=== PATIENT | female | born 1945 | race Caucasian/White ===

== ENCOUNTER 2018-07-12 00:32 | Emergency (ER) | payer MEDICARE, BC ==
--- OUTSIDE RECORDS SUMMARY | 2018-07-12 00:34 | XMS REPORT | Clinical Summary ---
:1945 Author Organization [facility] Address [address] [place] [address] Care Team Providers Name Role Phone Alton Herrera Primary Care Provider Allergies No Known Allergies Medications Not on file Active Problems Not on file Social History Tobacco Use Types Packs/Day Years Used Date Never Smoker Alcohol Use Drinks/Week oz/Week Comments No Sex Assigned at Date Recorded Not on file Job Start Date Occupation Industry Not on file Not on file Not on file Travel History Travel Start Travel End No recent travel history available. Last Filed Vital Signs Not on file Plan of Treatment Not on file Results Not on fileafter 07/11/2017 Insurance Payer Benefit Plan / Group Subscriber ID Type Phone Address MEDICARE MEDICARE A B xxxxxxxxxx Medicare UNITED HEALTHCARE - [place] ONLY HMO POS SELECT xxxxxxxxx HMO/POS CARE CHOICE
--- OUTSIDE RECORDS SUMMARY | 2018-07-12 00:34 | XMS REPORT | Clinical Summary ---
:1945 Author Organization [facility] Address [address] [place] [id number] Care Team Providers Name Role Phone Vera Cronin Primary Care Provider Allergies No Known Allergies Medications No known medications Active Problems Problem Noted Date Hip pain 09/27/2015 Social History Tobacco Use Types Packs/Day Years Used Date Never Smoker Sex Assigned at Date Recorded Not on file Job Start Date Occupation Industry Not on file Not on file Not on file Travel History Travel Start Travel End No recent travel history available. Last Filed Vital Signs Not on file Plan of Treatment Health Maintenance Due Date Last Done Comments BREAST CANCER SCREENING 1996 COLON CANCER SCREENING 1996 SHINGLES VACCINES (#1) 1996 65+ PNEUMOCOCCAL VACCINE (1 of 2 - PCV13) 2011 PNEUMOCOCCAL POLYSACCHARIDE VACCINE AGE 65 AND OVER 2011 INFLUENZA VACCINE 10/07/2018 Implants Implanted Type Area Air Quality Technician Device Shelf Model / Identifier Expiration Serial / Date Lot 54mm, Vivian Acetabular Shell, Taper Size 3 Hip Acetabular Right: [facility] 06/03/2020 [id number] / Implanted: Qty: 1 on 09/27/2015 by Zion Forman MD Components Hip / [id number] 36 Mm Neutral Offset Taper Size 3, Liner, Ecima Hip Implant Right: [facility] 08/13/2020 [id number] / Implanted: Qty: 1 on 09/27/2015 by Zion Forman MD System Hip / [id number] Mini Hip Stem Size 6,Standard Neck, Hip Implant Right: [facility] 2020 [id number] / Implanted: Qty: 1 on 09/27/2015 by Zion Forman MD System Hip / [id number] 36mm Extra Short -8.0 Mm 02/19 Eurocone Taper Vivian Modular Head Hip Implant Right: [employer] [place] 04/09/2020 [id number] / Implanted: Qty: 1 on 09/27/2015 by Zion Forman MD System Hip / [id number] Results Not on fileafter 07/11/2017 Insurance Payer Benefit Plan / Group Subscriber ID Type Phone Address MEDICARE MEDICARE PART B xxxxxxxxxx Medicare [place], [place] UHC [employer]ALTH[employer] xxxxxxxxx HMO Advance Directives Patient has advance care planning documents on file. For more information, please contact:Vernon Carballo[address] [place] [address]
--- OUTSIDE RECORDS SUMMARY | 2018-07-12 00:36 | XMS REPORT | Continuity of Care Document ---
:1945 Author Organization Interface Problems Problem Status Onset Classification Date Comments Source Date Reported M16.12 - Active 01/23/20 OPID UNILATERAL [address] [place] [address] PRIMARY [facility] OSTEOARTHRI PAIN IN LEFT Active 01/16/20 [facility] HIP, UNILATERAL 16 [facility] PRIMARY OST I82.409 - ACUTE Active 10/08/19 The EMBOLISM AND [address] [place] THOMBOS UNS Hepatitis Resolved 03/09/19 Problem 02/23/2016 Treated [facility] C<sup>2</sup> 02 [facility] Carditis Resolved 03/09/18 Problem 02/23/[address] TB (<span Resolved 03/09/18 Problem 02/23/2016 Treated [facility] ID="[id number] [facility] 3">Confirmed</s tamayo>)<sup>1</mace p> Murmur, heart Active Problem 02/23/2016 [facility] Hearing Resolved Problem 02/23/2016 [facility] impairment [facility] Hypertension Active Problem 02/23/2016 [facility] ACUTE EMBOLISM Active The AND [facility] [place] [place] UNSP DEEP VN PRESENCE OF Active The RIGHT [place] ARTIFICIAL HIP JOINT ILLNESS, Active [facility] UNSPECIFIED [facility] Medications Medication Details Route Status Patient Ordering Order Source Instructions Provider Date Mupirocin 1 appl, NASAL, Active Q12H, in each 2015 [facility] nostril, 0 City Refill(s) Acetaminophen 325 10/325mg, PO, Active MG / Hydrocodone Q4H, PRN as 2015 [facility] Bitartrate 10 MG needed for [facility] Oral Tablet pain, # 50 tab, [Seibert 10/325] 0 Refill(s) gabapentin 300 MG 300 mg=1 cap, Active Oral Capsule PO, Bedtime, 2015 [facility] For nerve pain [facility] May cause dorwisness, # 30 cap, 0 Refill(s) celecoxib 200 MG 200 mg=1 cap, Active Oral Capsule PO, BID, Take 2015 [facility] [Celebrex] with food [facility] Prevent bone spur, # 60 cap, 0 Refill(s) Aspirin 325 MG 325 mg=1 tab, Active Enteric Coated PO, BID, Take 2015 [facility] Tablet with food For [facility] blood clot prevention, # 60 tab, 0 Refill(s) bromfenac 0.9 1 drp, Route: No Longer MG/ML Ophthalmic OPTH, Drug Active 2015 [facility] Solution Form: SOLN, Natty [] Dosing Weight 78.182, kg, BID, Start date: 02/19/16 9:00:00 RISK ASSESSMENT ANALYST, Duration: 30 day, Stop date: 03/19/16 17:00:00 RISK ASSESSMENT ANALYST Paroxetine 20 mg, 1 tab, No Longer Route: PO, Drug Active 2015 [facility] form: TAB, QAM, [facility] Dosing Weight 78.182, kg, Start date: 02/19/16 9:00:00 RISK ASSESSMENT ANALYST, Duration: 30 day, Stop date: 03/19/16 9:00:00 CSTNotes: (Same as: Paxil) Enoxaparin 40 mg, 0.4 mL, No Longer Route: SUB-Q, Active 2015 [facility] Drug form: INJ, [facility] Daily, Dosing Weight 78.182, kg, Start date: 02/19/16 5:00:00 RISK ASSESSMENT ANALYST, Duration: 30 day, Stop date: 03/19/16 5:00:00 CSTNotes: (Same as: Lovenox) Vancomycin 6.67 1,000 mg, Inactive MG/ML Injectable Route: IVPB, 2015 [facility] Solution Q12H, Dosing City Weight 78.182, kg, Time Critical Medication, Start date: 02/19/16 3:00:00 RISK ASSESSMENT ANALYST, Duration: 2 doses or times, Stop date: 02/19/16 15:00:00 RISK ASSESSMENT ANALYST, Pharmacy to adjust dose for renal functionNotes: TIME CRITICAL MEDICATION (Same As: Vancocin) Infusion rate 2001 mg: infuse over 2.5 hours MEDICATION WASTE Product Size: 1000 mg Product Wasted: ___ mg gabapentin 300 mg, 1 cap, No Longer Route: PO, Drug Active 2015 [facility] form: CAP, Natty Q8H-06, Dosing Weight 78.182, kg, Start date: 02/18/16 22:00:00 RISK ASSESSMENT ANALYST, Duration: 30 day, Stop date: 03/19/16 14:00:00 CSTNotes: (Same as: Neurontin) acetaminophen 500 mg, 1 tab, No Longer Route: PO, Drug Active 2015 [facility] form: TAB, Q6H, [facility] Start date: 02/18/16 21:00:00 RISK ASSESSMENT ANALYST, Duration: 30 day, Stop date: 03/19/16 15:00:00 CSTNotes: Max acetaminophen 4000 mg/day (4 gm/day). (Same as: Tylenol Extra Strength) celecoxib 200 mg, 1 cap, No Longer Route: PO, Drug Active 2015 [facility] form: CAP, [facility] [id number], Dosing Weight 78.182, kg, Start date: 02/18/16 21:00:00 RISK ASSESSMENT ANALYST, Duration: 30 day, Stop date: 03/19/16 9:00:00 CSTNotes: NSAID. Please check indication. Not for seizure. (Same As: CeleBREX) Saline Flush 0.9% 10 ml, Route: Inactive IVP, Drug Form: 2015 [facility] INJ, Dosing [facility] Weight 78.182, kg, Q12H, Start date: 02/18/16 21:00:00 RISK ASSESSMENT ANALYST, Duration: 30 day, Stop date: 03/19/16 9:00:00 RISK ASSESSMENT ANALYST Mupirocin 1 appl, Route: No Longer NASAL, Q12H, Active 2015 [facility] Drug form: City OINT, Start date: 02/18/16 21:00:00 RISK ASSESSMENT ANALYST, Duration: 30 day, Stop date: 03/19/16 9:00:00 RISK ASSESSMENT ANALYST ceFAZolin (SCIP) 2 gm, 100 mL, No Longer Route: IVPB, Active 2015 [facility] Drug form: INJ, City Q6H, Dosing Weight 78.182, kg, Start date: 02/18/16 20:00:00 RISK ASSESSMENT ANALYST, Duration: 3 doses or times, Stop date: 02/19/16 8:00:00 CSTNotes: Same as: Ancef Docusate 100 mg, 1 cap, No Longer Route: PO, Drug Active [address] [place] [address] form: CAP, BID, [facility] Dosing Weight 78.182, kg, Start date: 02/18/16 17:00:00 RISK ASSESSMENT ANALYST, Duration: 30 day, Stop date: 03/19/16 9:00:00 CSTNotes: (Same as: Colace) (Do Not Crush) phenylephrine Route: IV, Drug Inactive (ANES) form: INJ, 2015 [facility] , Stop City date: 02/18/16 16:49:00 RISK ASSESSMENT ANALYST Acetaminophen 1,000 mg, Inactive Route: IVPB, 2015 [facility] Q6Hnow, Dosing City Weight 78.182, kg, Start date: 02/18/16 16:00:00 RISK ASSESSMENT ANALYST, Duration: 30 day, Stop date: 03/19/16 10:00:00 RISK ASSESSMENT ANALYST BD Normal Saline 5 mL, Route: No Longer Flush IV, Drug Form: Active 2015 [facility] INJ, PRN, PRN [facility] Line Flush, Start date: 02/18/16 15:31:00 RISK ASSESSMENT ANALYST, Duration: 30 day, Stop date: 03/19/16 15:30:00 CSTNotes: (Same as: BD Posiflush) Sodium Chloride 25 mL, Route: No Longer 0.9% IV IV, Start date: Active 2015 [facility] 02/18/16 [facility] 15:31:00 RISK ASSESSMENT ANALYST, Duration: 30 day, Stop date: 03/19/16 15:30:00 RISK ASSESSMENT ANALYST, PRN Line Flush famotidine (ANES) Route: IV, Drug Inactive form: INJ, 2015 [facility] , Stop City date: 02/18/16 15:18:00 RISK ASSESSMENT ANALYST metoclopramide Route: IV, Drug Inactive (ANES) form: INJ, 2015 [facility] , Stop City date: 02/18/16 15:18:00 RISK ASSESSMENT ANALYST ondansetron Route: IV, Drug Inactive (ANES) form: INJ, 2015 [facility] , Stop City date: 02/18/16 15:18:00 RISK ASSESSMENT ANALYST dexamethasone Route: IV, Drug Inactive (ANES) form: INJ, 2015 [facility] , Stop City date: 02/18/16 15:18:00 RISK ASSESSMENT ANALYST Morphine 2 mg, 1 mL, No Longer Route: IVP, Active 2015 [facility] Drug form: INJ, [facility] Q4H, Dosing Weight 78.182, kg, PRN Pain Score 6-10, Start date: 02/18/16 15:16:00 RISK ASSESSMENT ANALYST, Duration: 30 day, Stop date: 03/19/16 15:15:00 CSTNotes: (Same as:MORPhine Sulfate) Diphenhydramine 25 mg, 1 cap, No Longer Route: PO, Drug Active 2015 [facility] form: CAP, City Bedtime, Dosing Weight 78.182, kg, PRN Insomnia, Start date: 02/18/16 15:16:00 RISK ASSESSMENT ANALYST, Duration: 30 day, Stop date: 03/19/16 15:15:00 CSTNotes: (Same as: Benadryl) Ondansetron 4 mg, 2 mL, No Longer Route: IVP, Active 2015 [facility] Drug form: INJ, City Q8H, Dosing Weight 78.182, kg, PRN Nausea & Vomiting, Start date: 02/18/16 15:16:00 RISK ASSESSMENT ANALYST, Duration: 30 day, Stop date: 03/19/16 15:15:00 CSTNotes: (Same as: Ann) MEDICATION WASTE Product Size: 4 mg Product Wasted: ___ mg Bisacodyl 10 mg, 1 supp, No Longer Route: OR, Drug Active 2015 [facility] form: SUPP, City Daily, Dosing Weight 78.182, kg, PRN Constipation, Start date: 02/18/16 15:16:00 RISK ASSESSMENT ANALYST, Duration: 30 day, Stop date: 03/19/16 15:15:00 CSTNotes: (Same As: Dulcolax, Bisco-Lax) Tramadol 100 mg, 2 tab, No Longer Route: PO, Drug Active 2015 [facility] form: TAB, City Q6Hnow, Dosing Weight 78.182, kg, PRN Pain Score 1-3, Start date: 02/18/16 15:16:00 RISK ASSESSMENT ANALYST, Duration: 30 day, Stop date: 03/19/16 15:15:00 CSTNotes: Not to exceed 400mg/day. (Same As: Ultram) Saline Flush 0.9% 10 ml, Route: Inactive IVP, Drug Form: 2015 [facility] INJ, Dosing City Weight 78.182, kg, PRN, PRN Line Flush, Start date: 02/18/16 15:16:00 RISK ASSESSMENT ANALYST, Duration: 30 day, Stop date: 03/19/16 15:15:00 RISK ASSESSMENT ANALYST Acetaminophen 325 2 tab, Route: No Longer MG / Hydrocodone PO, Drug Form: Active 2015 [facility] Bitartrate 10 MG TAB, Dosing City Oral Tablet Weight 78.182, kg, Q4H, PRN Pain Score 6-10, Start date: 02/18/16 15:16:00 RISK ASSESSMENT ANALYST, Duration: 30 day, Stop date: 03/19/16 15:15:00 CSTNotes: Do not exceed 4gm/day of acetaminophen. (Same as: Seibert 325/10) Lactated Ringers 1,000 mL, Rate: No Longer 1,000 mL 125 ml/hr, Active 2015 [facility] Infuse over: 8 City hr, Route: IV, Dosing Weight 78.182 kg, Total Volume: 1,000, Start date: 02/18/16 15:16:00 RISK ASSESSMENT ANALYST, Duration: 30 day, Stop date: 03/19/16 15:15:00 RISK ASSESSMENT ANALYST phenylephrine Route: IV, Drug Inactive MH (ANES) (ANES) form: INJ, 2015 [facility] Start date: [facility] 02/18/16 15:15:00 RISK ASSESSMENT ANALYST, Stop date: 02/18/16 16:15:00 RISK ASSESSMENT ANALYST morphine Sulfate Route: IV, Drug Inactive MH (ANES) form: JOSE JUAN 2015 [facility] , date: 02/18/16 15:12:00 RISK ASSESSMENT ANALYST fentaNYL (ANES) Route: IV, Drug Inactive form: INJ 2015 [facility] , date: 02/18/16 15:12:00 RISK ASSESSMENT ANALYST midazolam (ANES) Route: IV, Drug Inactive form: SOLN 2015 [facility] , date: 02/18/16 15:12:00 RISK ASSESSMENT ANALYST lidocaine (ANES) Route: IV, Drug Inactive 02/17/ MH form: INJ, 2015 [facility] , date: 02/18/16 15:12:00 RISK ASSESSMENT ANALYST ePHEDrine (ANES) Route: IV, Drug Inactive 02/17/ MH form: INJ, 2015 [facility] , City date: 02/18/16 15:07:00 RISK ASSESSMENT ANALYST propofol (ANES) Route: IV, Drug Inactive 12/12/ MH form: INJ, 2015 [facility] ONCE, Stop City date: 02/18/16 15:07:00 RISK ASSESSMENT ANALYST bupivacaine Route: IV, Drug Inactive 02/17/ MH (ANES) Form: INJ, 2015 [facility] , Stop City date: 02/18/16 14:52:00 RISK ASSESSMENT ANALYST morphine Sulfate Route: Inactive MH (ANES) INTRATHECAL, 2015 [facility] Drug form: [facility] SOLN, ONCE, Stop date: 02/18/16 14:52:00 RISK ASSESSMENT ANALYST acetaminophen Route: IV, Drug Inactive MH (ANES) (ANES) form: INJ, 2015 [facility] Start date: [facility] 02/18/16 14:37:00 RISK ASSESSMENT ANALYST, Stop date: 02/18/16 15:37:00 RISK ASSESSMENT ANALYST tranexamic acid Route: IV, Drug Inactive 02/17/ MH (ANES) (ANES) form: INJ, 2015 [facility] Start date: [facility] 02/18/16 14:34:00 RISK ASSESSMENT ANALYST, Stop date: 02/18/16 15:34:00 RISK ASSESSMENT ANALYST propofol (ANES) Route: IV, Drug Inactive MH (ANES) form: INJ, 2015 [facility] Start date: [facility] 02/18/16 14:20:00 RISK ASSESSMENT ANALYST, Stop date: 02/18/16 15:20:00 RISK ASSESSMENT ANALYST LR 1000 mL INJ Route: IV, Inactive MH (ANES) Total Volume: 2015 [facility] 1,000, Start City date: 02/18/16 14:11:00 RISK ASSESSMENT ANALYST, Stop date: 02/18/16 15:11:00 RISK ASSESSMENT ANALYST vancomycin (ANES) Route: IV, Drug Inactive MH (ANES) form: INJ, 2015 [facility] Start date: [facility] 02/18/16 14:11:00 RISK ASSESSMENT ANALYST, Stop date: 02/18/16 15:11:00 RISK ASSESSMENT ANALYST ceFAZolin (ANES) Route: IV, Drug Inactive 02/17/ MH (ANES) form: INJ, 2015 [facility] Start date: [facility] 02/18/16 14:11:00 RISK ASSESSMENT ANALYST, Stop date: 02/18/16 15:11:00 RISK ASSESSMENT ANALYST ceFAZolin 2 gm, 100 mL, Inactive MH Route: IVPB, 2015 [facility] Drug form: INJ, [facility] ONCALL, Start date: 02/18/16 0:00:00 RISK ASSESSMENT ANALYST, Duration: 20 hr, Stop date: 02/18/16 19:59:00 CSTNotes: Same as: Ancef vancomycin + 1,250 mg, Inactive sodium chloride Route: IVPB, 2015 [facility] 0.9% 250 [facility] date: 02/18/16 mL 0:00:00 RISK ASSESSMENT ANALYST, Duration: 20 hr, Stop date: 02/18/16 19:59:00 CSTNotes: TIME CRITICAL MEDICATION (Same As: Vancocin) Infusion rate 2001 mg: infuse over 2.5 hours MEDICATION WASTE Product Size: 1000 mg Product Wasted: ___ mg Cyklokapron + 1,000 mg, 10 No Longer sodium chloride mL, Route: Active 2015 [facility] 0.9% INJ [facility] Start date: 02/18/16 0:00:00 RISK ASSESSMENT ANALYST, Duration: 2 doses or timesNotes: (Same As: Cyklokapron) dexamethasone 4 mg, 1 mL, Inactive Route: IVP, 2015 [facility] Drug form: INJ [facility] Start date: 02/18/16 0:00:00 RISK ASSESSMENT ANALYST, Duration: 20 hr, Stop date: 02/18/16 19:59:00 CSTNotes: Concentration: 4mg/ml Ofirmev 1,000 mg, 100 No Longer mL, Route: IV, Active 2015 [facility] Drug form: INJNatty, Start date: 02/18/16 0:00:00 RISK ASSESSMENT ANALYST, Duration: 20 hr, Stop date: 02/18/16 19:59:00 CSTNotes: Infuse over 15 minutes Do not exceed 4gm/day of acetaminophen MEDICATION WASTE Product Size: 1000 mg Product Wasted: ___ mg Lyrica 75 mg, 1 cap, Inactive Route: PO, Drug 2015 [facility] form: CAP, Natty WOODWADR, Start date: 02/18/16 0:00:00 RISK ASSESSMENT ANALYST, Duration: 20 hr, Stop date: 02/18/16 19:59:00 CSTNotes: (Same as: Lyrica) CeleBREX 400 mg, 2 cap, Inactive Route: PO, Drug 2015 [facility] form: CAP, [facility] TRACE, Start date: 02/18/16 0:00:00 RISK ASSESSMENT ANALYST, Duration: 20 hr, Stop date: 02/18/16 19:59:00 CSTNotes: NSAID. Please check indication. Not for seizure. (Same As: CeleBREX) Zofran 4 mg, 2 mL, Inactive Route: IVP, 2015 [facility] Drug form: INJ, Natty ONCALL, Start date: 02/18/16 0:00:00 RISK ASSESSMENT ANALYST, Duration: 20 hr, Stop date: 02/18/16 19:59:00 CSTNotes: (Same as: Zofran) MEDICATION WASTE Product Size: 4 mg Product Wasted: ___ mg Pepcid 20 mg, 1 tab, Inactive Route: PO, Drug 2015 [facility] form: TAB, Natty ONCALL, Start date: 02/18/16 0:00:00 RISK ASSESSMENT ANALYST, Duration: 20 hr, Stop date: 02/18/16 19:59:00 CSTNotes: (Same as: Pepcid) multivitamin 1 tab, PO, Active 02/03/ MH Daily, 0 2015 [facility] Refill(s) [facility] difluprednate 0.5 1 drp, BOTH Active 02/03/ MH MG/ML Ophthalmic EYES, QID, 2015 [facility] Suspension After 14 days, [facility] [Durezol] taper dose as directed by physician., # 5 mL, 0 Refill(s) bromfenac 0.9 1 drp, OPTH, Active 02/03/ MH MG/ML Ophthalmic BID, # 5 ml, 0 2015 [facility] Solution Refill(s) [facility] carvedilol 6.25 6.25 mg=1 tab, Active 02/03/ MH mg oral tablet PO, BID, 0 2015 [facility] Refill(s) [facility] PARoxetine 20 mg=1 tab, Active 02/03/ MH mesylate 20 mg PO, QAM, 0 2015 [facility] oral tablet Refill(s) [facility] Allergies, Adverse Reactions, Alerts Substance Category Reaction Severity Reaction Status Date Comments Source type Reported Immunizations Immunization Date Given Site Status Last Updated Comments Source Results Order Name Results Value Reference Date Interpretation Comments Source Range HEMATOLOGY Eosinophils 2.0 % 0.0 - 4.0 02/19 [facility] HEMATOLOGY Monocytes 10.8 % 2.0 - 12.0 02/19 [facility] HEMATOLOGY Segs 61.4 % 45.0 - 12/ MH 75.0 /2016 [facility] HEMATOLOGY Lymphocytes 24.8 % 20.0 - 12/ MH 40.0 /2015 [facility] HEMATOLOGY Monocytes # 0.7 K/CMM 0.0 - 0.8 12/ MH /2015 [facility] HEMATOLOGY Lymphocytes 1.6 K/CMM 1.0 - 5.5 12/14 MH # /2016 [facility] HEMATOLOGY Segs-Bands # 4.0 K/CMM 1.5 - 8.1 02/19 /2015 [facility] HEMATOLOGY Basophils 1.0 % 0.0 - 1.0 12/ MH /2015 [facility] HEMATOLOGY Basophils # 0.1 K/CMM 0.0 - 0.2 / /2015 [facility] HEMATOLOGY Eosinophils 0.1 K/CMM 0.0 - 0.5 /14 MH # /2016 [facility] HEMATOLOGY Hct 25.9 % 36.0 - 02/19 MH 48.0 /2015 [facility] HEMATOLOGY MCV 84.9 fL 80.0 - 02/19 98.0 /2015 [facility] HEMATOLOGY MCH 28.2 pg 27.0 - 02/19 MH 31.0 [facility] HEMATOLOGY MCHC 33.2 g/dL 32.0 - 02/19 MH 36.0 /2015 [facility] HEMATOLOGY RDW 14.9 % 11.5 - 02/19 14.5 [facility] HEMATOLOGY Platelet 158 K/CMM 133 - 450 / /2015 [facility] MPV 9.2 fL 7.4 - 10.4 02/19 [facility] HEMATOLOGY WBC 6.6 K/CMM 3.7 - 10.4 02/19 [facility] HEMATOLOGY RBC 3.05 M/CMM 4.20 - 02/19 MH 5.40 /2015 [facility] HEMATOLOGY Hgb 8.6 g/dL 12.0 - 02/19 MH 16.0 [facility] CHEM PANEL eGFR 71 02/18 Result Comment: The eGFR is calculated using the CKD-EPI formula. In most young, healthy individuals the eGFR will be >90 mL/ min/1.73m2. The eGFR declines with age. An eGFR of 60-89 may be normal in MH mL/min/1. some populations, particularly the elderly, for whom the CKD-EPI formula has not been extensively validated. Use of the eGFR is not recommended in the following populations: [address] Individuals with unstable creatinine concentrations, including patients and those with serious co-morbid conditions. Patients with extremes in muscle mass or diet. The data above are obtained from the National Kidney Disease Education Program (NKDEP) which additionally recommends that when the eGFR is used in patients with extremes of body mass index for purposes of drug dosing, the eGFR should be multiplied by the estimated BMI. CHEM PANEL AST 25 unit/L 0 - 37 02/18 [facility] CHEM PANEL ALT 21 unit/L 0 - 65 02/18 [facility] CHEM PANEL Creatinine 0.84 mg/dL 0.50 - 12 MH Lvl 1.40 /2015 [facility] CHEM PANEL Glucose Lvl 164 mg/dL 70 - 99 02/18 [facility] CHEM PANEL CO2 23 meq/L 24 - 32 02/18 [facility] CHEM PANEL BUN 14 mg/dL 7 - 22 02/18 [facility] CHEM PANEL Total 5.9 g/dL 6.4 - 8.4 02/18 [facility] CHEM PANEL Albumin Lvl 3.0 g/dL 3.5 - 5.0 02/18 [facility] CHEM PANEL Alk Phos 130 unit/L 39 - 136 02/18 [facility] CHEM PANEL Bili Total null 0.2 - 1.3 02/18 [facility] CHEM PANEL Calcium Lvl 8.5 mg/dL 8.5 - 10.5 02/18 [facility] CHEM PANEL Chloride Lvl 108 meq/L 95 - 109 02/18 [facility] CHEM PANEL Potassium 4.2 meq/L 3.5 - 5.1 02/18 MH Lvl [facility] CHEM PANEL Sodium Lvl 142 meq/L 135 - 145 02/18 [facility] CHEM PANEL A/G Ratio 1.0 0.7 - 1.6 02/18 [facility] CHEM PANEL B/C Ratio 17 6 - 25 02/18 [facility] CHEM PANEL Globulin 2.9 g/dL 2.7 - 4.2 02/18 [facility] CHEM PANEL AGAP 15.2 meq/L 10.0 - 12 MH 20.0 [facility] HEMATOLOGY INR 1.05 0.85 - 02/18 MH 1.17 [facility] HEMATOLOGY PT 13.9 s 12.0 - 02/18 MH 14.7 /2015 [facility] HEMATOLOGY PTT 29.7 s 22.9 - 02/18 MH 35.8 /2015 [facility] HEMATOLOGY Platelet 195 K/CMM 133 - 450 02/18 MH /2015 [facility] MCH 28.1 pg 27.0 - 02/18 MH 31.0 /2015 [facility] HEMATOLOGY MCHC 33.2 g/dL 32.0 - 02/18 MH 36.0 /2015 [facility] HEMATOLOGY MPV 8.9 fL 7.4 - 10.4 12 MH /2015 [facility] HEMATOLOGY RDW 14.9 % 11.5 - 02/18 MH 14.5 /2015 [facility] HEMATOLOGY WBC 11.1 K/CMM 3.7 - 10.4 02/18 /2015 [facility] HEMATOLOGY MCV 84.7 fL 80.0 - 02/18 98.0 /2015 [facility] Hct 30.5 % 36.0 - 02/18 MH 48.0 /2015 [facility] HEMATOLOGY Hgb 10.1 g/dL 12.0 - 02/18 16.0 /2015 [facility] HEMATOLOGY RBC 3.60 M/CMM 4.20 - 02/18 MH 5.40 /2015 [facility] HEMATOLOGY Lymphocytes 5.5 % 20.0 - 02/18 MH 40.0 /2015 [facility] HEMATOLOGY Segs-Bands # 9.6 K/CMM 1.5 - 8.1 02/18 /2015 [facility] HEMATOLOGY Basophils 0.1 % 0.0 - 1.0 02/18 /2015 [facility] HEMATOLOGY Monocytes 7.2 % 2.0 - 12.0 02/18 /2015 [facility] HEMATOLOGY Monocytes # 0.8 K/CMM 0.0 - 0.8 02/18 /2015 [facility] HEMATOLOGY Lymphocytes 0.6 K/CMM 1.0 - 5.5 02/18 MH # /2015 [facility] HEMATOLOGY Segs 87.2 % 45.0 - 02/18 MH 75.0 [facility] BLOOD BANK Antibody Negative 02/17 RESULTS Scrn [facility] (02/18/16 12:30 PM) [facility] BLOOD BANK ABO/Rh O POS 02/17 RESULTS /2015 [facility] Pelvis AP Pelvis AP DX Clinical Information : left mini total hip replacement -intra op. 02/17 - DX - [facility] : 1945 [facility] Sex: Female. Read by: Regan Smith MD Dictated Date/time: 02/18/16 17:26 Electronically Signed by: Regan Smith MD 02/18/16 17:27 FINAL REPORT Technique: AP post operative view of the left hip. Findings: Normally articulated left hip arthroplasty. Soft tissue surgical defects. Surgical drain. Right hip arthroplasty indwelling. Impression: Normal post op left hip arthroplasty. Pelvis AP Pelvis AP DX Clinical Information : Arthritis. 02/17 - DX /2015 - [facility] : 1945 [facility] Sex: Female. Read by: Regan Smith MD Dictated Date/time: 02/18/16 17:25 Electronically Signed by: Regan Smith MD 02/18/16 17:25 FINAL REPORT Technique: AP intra-operative view of the left hip. Findings: Intraoperative view of left hip arthroplasty in progress. Femoral sizing stem. Normally articulated right hip arthroplasty. BACTERIAL MRSA by PCR Negative 02/03 - SEROLOGY /2015 [facility] (02/04/16 10:00 AM) [facility] CHEM PANEL Glucose Lvl 91 mg/dL 70 - 99 02/03 [facility] ELECTROLYT Sodium Lvl 144 meq/L 135 - 145 02/03 ES [facility] ELECTROLYT Potassium 4.1 meq/L 3.5 - 5.1 02/03 ES Lvl [facility] HEMATOLOGY Hct 37.8 % 36.0 - 02/03 48.0 [facility] HEMATOLOGY Hgb 12.3 g/dL 12.0 - 02/03 16.0 [facility] IMMUNOLOGY Hep C Ab Positive 02/03 [facility] *ABN* [facility] (02/04/16 10:00 AM) Ext Lower Ext Lower Exam: Right lower extremity Doppler venous ultrasound. 10/21 OPID Venous Venous /2015 - [facility] Doppler Doppler [facility] Unilat US Unilat US Reason for Exam: DVT Read by: Neftali Farias MD Dictated Date/time: 10/22/15 14:37 Electronically Signed by: Neftali Farias MD 10/22/15 14:39 FINAL REPORT Comparison Exam: 10/08/2015 Discussion: Real-time grayscale, color Doppler imaging, and spectral waveform analysis was performed of the right lower extremity deep venous system. There are no filling defects or lack of compressibility seen wit hin the deep venous system to suggest DVT. The waveforms are within normal limits and respond appropriately to augmentation. Note that the popliteal vein appears prominent in size, measuring up to 1.5 cm. in diameter. Impression: 1. Negative right lower extremity Doppler venous ultrasound for DVT. Note that the popliteal vein appears prominent in size, measuring up to 1.5 cm. in diameter. Ext Lower Ext Lower Clinical Indication: Leg swelling and leg pain, rule out DVT. 10/07 - The Venous Venous /2015 [facility] Doppler Doppler Comparison: None Unilat US Unilat US Read by: Milton Islas MD Dictated Date/time: 10/08/15 13:06 TECHNIQUE: Electronically Signed by: Milton Islas MD 10/08/15 13:10 FINAL REPORT Real-time grayscale, color Doppler, and spectral Doppler ultrasound imaging of the right leg veins. FINDINGS: The common femoral vein, superficial femoral vein, popliteal vein and visualized posterior tibial/calf veins are patent with normal compression and augmentation. There is no echogenic debris to suggest deep venous thrombosis. The saphenofemoral junction is unremarkable. IMPRESSION: 1. No deep venous thrombosis of the right lower extremity. REFERENCE: Deep veins include: common femoral vein, superficial femoral vein (also can be referred to as "femoral vein"), popliteal vein, posterior tibial vein Superficial veins include: greater and lesser saphenous veins SL: [id number] Vital Signs Vital Sign Value Date Comments Source Respitory Rate 16 02/20/2016 [facility] Heart Rate 65 02/20/2016 [facility] Systolic (mm Hg) 131 02/20/2016 [facility] Diastolic (mm Hg) 65 02/20/2016 [facility] Temperature Oral (F) 98.1 F 02/20/2016 [facility] Systolic (mm Hg) 125 02/20/2016 [facility] Diastolic (mm Hg) 64 02/20/2016 [facility] Temperature Oral (F) 98.2 F 02/20/2016 [facility] Heart Rate 63 02/20/2016 [facility] Respitory Rate 16 02/20/2016 [facility] Systolic (mm Hg) 148 02/20/2016 [facility] Diastolic (mm Hg) 69 02/20/2016 [facility] Respitory Rate 18 02/20/2016 [facility] Temperature Oral (F) 97.6 F 02/20/2016 [facility] Heart Rate 62 02/20/2016 [facility] BMI Calculated 27.82 02/04/2016 [facility] Height 167.64 cm 02/04/2016 [facility] Weight 78.182 02/04/2016 [facility] Encounters Location Location Encounter Encounter Reason Attending ADM DC Status Source Details Type Number For Provider Date Date Visit [id number] 10[facility]07 [facility]2015 [facility] Outpt Diag [id number] 10/21 [facility] Inpatient [id number] 02/17 [facility] Procedures Procedure Code Date Perfomer Comments Source Cataract surgery [id number] [address] Hip replacement [id number] [address] Bunionectomy [id number] [address] Open heart [id number] window for [facility]<sup>1</sup constrictive City > paracarditis Procedure on nasal [id number] [facility]
[2018-07-12 01:47] LABS: Absolute Lymphocytes (CBC) 1.6 K/uL (0.7-4.9); Absolute Monocytes 0.7 K/uL (0.1-1.3); Absolute Neutrophil 3.8 K/uL (1.8-8.0); Basophils % 0.8 % (0-1.3); Eosinophils % 2.7 % (0-4.4); Hematocrit 38.8 % (36.0-45.0); Lymphocytes % 25.3 % (15.3-44.8); MPV 8.8 fL (7.6-11.3); Monocytes % 11.4 % (3.3-12.3)
[2018-07-12 02:05] LABS: BUN Blood Urea Nitrogen 28 mg/dL (7-18); Bicarbonate 28 mmol/L (21-32); Glucose Level 99 mg/dL (74-106); Magnesium 2.3 mg/dL (1.8-2.4); Potassium 3.5 mmol/L (3.5-5.1); Sodium Level 142 mmol/L (136-145); Troponin (Emerg Dept Use Only) < 0.02 ng/mL (0.0-0.045)
[2018-07-12] MEDS ORDERED: NA CHLORIDE 0.9% 500 ML ONE (02:29)
--- NOTE | 2018-07-12 04:21 | ER ---
Nurse's Notes [facility] Name: Mary Romero Age: 73 yrs Sex: Female : 1945 Arrival Date: 07/12/2018 Time: 00:36 Bed 14 Private MD: Atlon Herrera V Diagnosis: Dehydration;Dizziness and giddiness Presentation: 07/12 00:51 Presenting complaint: Patient states: she has been feeling dizzy the last week then bb noticed tonight she had an irregular pulse then this evening she also noticed she had a knot on her neck. Transition of care: patient was not received from another setting of care. Onset of symptoms was July 12, 2018. Risk Assessment: Do you want to hurt yourself or someone else? Patient reports no desire to harm self or others. Initial Sepsis Screen: Does the patient meet any 2 criteria? No. Patient's initial sepsis screen is negative. Does the patient have a suspected source of infection? No. Patient's initial sepsis screen is negative. Care prior to arrival: None. 00:51 Method Of Arrival: Ambulatory bb 00:51 Acuity: LORA 3 bb Historical: - Allergies: 00:57 No Known Allergies; bb - Home Meds: 00:56 amlodipine 2.5 mg tab 1 tab twice a day [Active]; aspirin 81 mg Oral chew 1 tab once bb daily [Active]; pravastatin 20 mg oral tab 1 tab once daily [Active]; D3 2000 IU daily [Active]; biotin oral oral [Active]; - PMHx: 00:56 Hyperlipidemia; Hypertension; bb - PSHx: 00:56 heart surgery in 1979; rhinoplasty; bunionectomy; bb 00:57 bilateral hip replacement; bb - Immunization history:: Adult Immunizations. - Social history:: Smoking status: Patient/guardian denies using tobacco. - Ebola Screening: : No symptoms or risks identified at this time. - Family history:: not pertinent. - Hospitalizations: : No recent hospitalization is reported. Screenin:28 Abuse screen: Denies threats or abuse. Nutritional screening: No deficits noted. ea Tuberculosis screening: No symptoms or risk factors identified. Fall Risk IV access (20 points). Assessment: 02:28 General: Appears in no apparent distress. Behavior is calm, cooperative, appropriate ea for age. Pain: Denies pain. Neuro: Level of Consciousness is awake, alert, obeys commands, Oriented to person, place, time, situation. Cardiovascular: Patient's skin is warm and dry. Respiratory: Airway is patent Respiratory effort is even, unlabored, Respiratory pattern is regular, symmetrical. GI: No signs and/or symptoms were reported involving the gastrointestinal system. Derm: Skin is pink, warm \T\ dry. 03:45 Reassessment: Patient and/or family updated on plan of care and expected duration. Pain ea level reassessed. Patient is alert, oriented x 3, equal unlabored respirations, skin warm/dry/pink. Awaiting on CT results. 04:49 Reassessment: Patient and/or family updated on plan of care and expected duration. Pain ea level reassessed. Patient is alert, oriented x 3, equal unlabored respirations, skin warm/dry/pink. Discharge instruction given to patient, verbalized the understanding of instruction. No s/s of pain or discomfort noted at this time. Pt left ED ambulatory, tolerating well. Vital Signs: 00:57 BP 128 / 73; Pulse 66; Resp 16 S; Temp 98.4(O); Pulse Ox 95% on R/A; Weight 84.82 kg bb (R); Height 5 ft. 6 in. (167.64 cm); Pain 2/10; 02:15 BP 128 / 61 Supine; Pulse 59; lt1 02:15 BP 129 / 65 Sitting; Pulse 64; lt1 02:15 BP 135 / 63 Standing; Pulse 71; lt1 04:03 BP 139 / 64; Pulse 63; Resp 13 S; Pulse Ox 96% on R/A; cc3 00:57 Body Mass Index 30.18 (84.82 kg, 167.64 cm) bb 00:57 pt has a headache bb ED Course: 00:36 Patient arrived in ED. es 00:37 Alton Herrera MD is Private Physician. es 00:52 Triage completed. bb 00:55 Delfino Holt MD is Attending Physician. rn 00:57 Arm band placed on Patient placed in an exam room, on a stretcher, on pulse oximetry. bb 01:29 X-ray completed. Portable x-ray completed in exam room. Patient tolerated procedure kw well. 01:35 Anu Little, LEONIDES is Primary Nurse. ea 01:38 Initial lab(s) drawn, by ia, sent to lab. Inserted saline lock: 20 gauge in right lt1 antecubital area, using aseptic technique. 01:43 CT completed. Patient tolerated procedure well. Patient moved to CT via wheelchair. ga Patient moved back from CT. 02:28 Patient has correct armband on for positive identification. Bed in low position. Call ea light in reach. Side rails up X2. 03:09 CT completed. Patient tolerated procedure well. Patient moved to CT. Patient moved back ga from CT. 04:20 Luis E Hernandez MD is Referral Physician. rn 04:45 IV discontinued, intact, bleeding controlled, No redness/swelling at site. Pressure ea dressing applied. 04:50 No provider procedures requiring assistance completed. ea 06:42 CT Head Brain wo Cont In Process Unspecified. EDMS 06:42 XRAY Chest (1 view) In Process Unspecified. EDMS 06:45 CT Head Angio In Process Unspecified. EDMS 06:[address] In Process Unspecified. EDMS Administered Medications: 02:27 Drug: NS 0.9% 500 ml Route: IV; Rate: bolus; Site: right antecubital; ea 03:50 Follow up: Response: No adverse reaction; IV Status: Completed infusion ea 04:51 Follow up: IV Status: Completed infusion; IV Intake: 500ml ea Intake: 04:51 IV: 500ml; Total: 500ml. ea Outcome: 04:20 Discharge ordered by MD. rn 04:51 Discharged to home ambulatory. ea 04:51 Condition: improved 04:51 Discharge instructions given to patient, Instructed on discharge instructions, follow up and referral plans. Demonstrated understanding of instructions, follow-up care. 04:51 Patient left the ED. ea Signatures: Dispatcher [employer] EDMS Michelle Martinez Brenda, RN RN bb Nieto, Roman, MD MD rn Whitley, Kimberlee kw Jordan, Nathan nj Antunez, Elena, RN RN ea Cordel, Charlene 3 Jocelynn Wylie lt1
--- NOTE | 2018-07-12 04:21 | EDPHYS ---
Physician Documentation [facility] Name: Mary Romero Age: 73 yrs Sex: Female : 1945 Arrival Date: 07/12/2018 Time: 00:36 Bed 14 Private MD: Alton Herrera V ED Physician Delfino Holt HPI: 07/12 01:17 This 73 yrs old Female presents to ER via Ambulatory with complaints of High rn Blood Pressure, Knot on neck. 01:17 The patient presents with dizziness, feeling off balance. Onset: The symptoms/episode rn began/occurred 1 week(s) ago. Context: occurred. Modifying factors: The symptoms are alleviated by lying down, the symptoms are aggravated by standing up, changing position. Severity of symptoms: At their worst the symptoms were mild in the emergency department the symptoms have improved. The patient has not experienced similar symptoms in the past. Reports 1 week of dizziness, feels off balance, comes and goes, no syncope, assoc with palpitations just tonight, but denies chest pain/sob/vomiting/diarrhea/abd pain. No focal neurological complaint. Ambulatory, cutting grass, and doing everything else ok. Also noticed knot just above sternal notch, no weight loss, blood in stool, or history of cancer. . Historical: - Allergies: 00:57 No Known Allergies; bb - Home Meds: 00:56 amlodipine 2.5 mg tab 1 tab twice a day [Active]; aspirin 81 mg Oral chew 1 tab once bb daily [Active]; pravastatin 20 mg oral tab 1 tab once daily [Active]; D3 2000 IU daily [Active]; biotin oral oral [Active]; - PMHx: 00:56 Hyperlipidemia; Hypertension; bb - PSHx: 00:56 heart surgery in 1979; rhinoplasty; bunionectomy; bb 00:57 bilateral hip replacement; bb - Immunization history:: Adult Immunizations. - Social history:: Smoking status: Patient/guardian denies using tobacco. - Ebola Screening: : No symptoms or risks identified at this time. - Family history:: not pertinent. - Hospitalizations: : No recent hospitalization is reported. ROS: 01:17 Constitutional: Negative for fever, chills, and weight loss, Eyes: Negative for injury, rn pain, redness, and discharge, Neck: Negative for injury, pain, and swelling, Cardiovascular: Negative for chest pain, and edema, Respiratory: Negative for shortness of breath, cough, wheezing, and pleuritic chest pain, Abdomen/GI: Negative for abdominal pain, nausea, vomiting, diarrhea, and constipation, MS/Extremity: Negative for injury and deformity, Skin: Negative for injury, rash, and discoloration, Neuro: Negative for headache, weakness, numbness, tingling, and seizure. Exam: 01:17 Constitutional: This is a well developed, well nourished patient who is awake, alert, rn and in no acute distress. Ambulatory to room. Head/Face: Normocephalic, atraumatic. Eyes: Pupils equal round and reactive to light, extra-ocular motions intact. Lids and lashes normal. Conjunctiva and sclera are non-icteric and not injected. Cornea within normal limits. Periorbital areas with no swelling, redness, or edema. ENT: MMM Cardiovascular: Regular rate and rhythm with a normal S1 and S2. No gallops, murmurs, or rubs. No pulse deficits. Respiratory: Lungs have equal breath sounds bilaterally, clear to auscultation. No increased work of breathing, no retractions or nasal flaring. Abdomen/GI: Soft, non-tender MS/ Extremity: Pulses equal, no cyanosis. Neurovascular intact. Full, normal range of motion. Equal circumference. Neuro: Awake and alert, GCS 15, oriented to person, place, time, and situation. Cranial nerves II-XII grossly intact. Motor strength 5/5 in all extremities. Sensory grossly intact. Cerebellar exam normal. Normal gait. Vital Signs: 00:57 BP 128 / 73; Pulse 66; Resp 16 S; Temp 98.4(O); Pulse Ox 95% on R/A; Weight 84.82 kg bb (R); Height 5 ft. 6 in. (167.64 cm); Pain 2/10; 02:15 BP 128 / 61 Supine; Pulse 59; lt1 02:15 BP 129 / 65 Sitting; Pulse 64; lt1 02:15 BP 135 / 63 Standing; Pulse 71; lt1 04:03 BP 139 / 64; Pulse 63; Resp 13 S; Pulse Ox 96% on R/A; cc3 00:57 Body Mass Index 30.18 (84.82 kg, 167.64 cm) bb 00:57 pt has a headache bb MDM: 00:55 Patient medically screened. rn 04:19 Differential diagnosis: idiopathic dizziness, vertigo. Data reviewed: vital signs, rn nurses notes, lab test result(s), EKG, radiologic studies, CT scan, and as a result, I will discharge patient. Counseling: I had a detailed discussion with the patient and/or guardian regarding: the historical points, exam findings, and any diagnostic results supporting the discharge/admit diagnosis, lab results, radiology results, the need for outpatient follow up, to return to the emergency department if symptoms worsen or persist or if there are any questions or concerns that arise at home. Special discussion: I discussed with the patient/guardian in detail that at this point there is no indication for admission to the hospital. It is understood, however, that if the symptoms persist or worsen the patient needs to return immediately for re-evaluation. Based on the history and exam findings, there is no indication for further emergent testing or inpatient evaluation. I discussed with the patient/guardian the need to see the neurologist for further evaluation of the symptoms. 04:19 ED course: Neg CTA head and neck. rn 07/12 01:17 Order name: Basic Metabolic Panel rn 07/12 01:17 Order name: CBC with Diff rn 07/12 01:17 Order name: Magnesium rn 07/12 01:17 Order name: Troponin (emerg Dept Use Only) rn 07/12 01:48 Order name: CBC with Automated Diff; Complete Time: 02:07 EDMS 07/12 02:05 Order name: Basic Metabolic Panel; Complete Time: 02:07 EDMS 07/12 01:17 Order name: CT Head Brain wo Cont rn 07/12 01:17 Order name: XRAY Chest (1 view) rn 07/12 02:05 Order name: Troponin (Emerg Dept Use Only); Complete Time: 02:07 EDMS 07/12 02:05 Order name: Magnesium; Complete Time: 02:07 EDMS 07/12 02:08 Order name: CT Head Angio rn 07/12 02:08 Order name: Neck Angio CT rn 07/12 04:26 Order name: Urine Dipstick--Ancillary (enter results) mw2 07/12 01:17 Order name: EKG; Complete Time: 01:17 rn 07/12 01:17 Order name: Cardiac monitoring; Complete Time: 02:16 rn 07/12 01:17 Order name: EKG - Nurse/Tech; Complete Time: 02:16 rn 07/12 01:17 Order name: IV Saline Lock; Complete Time: 01:39 rn 07/12 01:17 Order name: Labs collected and sent; Complete Time: 01:39 rn 07/12 01:17 Order name: O2 Per Protocol; Complete Time: 02:43 rn 07/12 01:17 Order name: O2 Sat Monitoring; Complete Time: 02:43 rn 07/12 01:17 Order name: Urine Dipstick-Ancillary (obtain specimen); Complete Time: 04:26 rn 07/12 01:17 Order name: Orthostatics; Complete Time: 02:16 rn Administered Medications: 02:27 Drug: NS 0.9% 500 ml Route: IV; Rate: bolus; Site: right antecubital; ea 03:50 Follow up: Response: No adverse reaction; IV Status: Completed infusion ea 04:51 Follow up: IV Status: Completed infusion; IV Intake: 500ml ea Disposition: 07/12/18 04:20 Discharged to Home. Impression: Dehydration, Dizziness and giddiness. - Condition is Stable. - Discharge Instructions: Dehydration, Adult, Dizziness. - Medication Reconciliation Form, Thank You Letter, Antibiotic Education, Prescription Opioid Use form. - Follow up: Luis E Hernandez; When: As needed; Reason: Recheck today's complaints, Re-evaluation by your physician. - Problem is an ongoing problem. - Symptoms have improved. Signatures: Dispatcher [employer] EDMS Teena Amezquita RN RN bb Nieto, Roman, MD MD rn Antunez, Elena, RN RN ea Corrections: (The following items were deleted from the chart) 04:51 04:20 07/12/2018 04:20 Discharged to Home. Impression: Dehydration; Dizziness and ea giddiness. Condition is Stable. Discharge Instructions: Dehydration, Adult, Dizziness. Forms are Medication Reconciliation Form, Thank You Letter, Antibiotic Education, Prescription Opioid Use. Follow up: Luis E Hernandez; When: As needed; Reason: Recheck today's complaints, Re-evaluation by your physician. Problem is an ongoing problem. Symptoms have improved. rn
[2018-07-12 05:34] LABS: Urine Blood NEGATIVE (NEG); Urine Glucose NEGATIVE (NEG); Urine Protein NEGATIVE (NEG); Urine Specific Gravity 1.015 (1.005-1.030); Urine pH 7.5 (5.0-7.0)
--- NOTE | 2018-07-12 08:23 | RAD REPORT ---
EXAM DESCRIPTION: RAD - Chest Single View - 07/12/2018 1:31 am CLINICAL HISTORY: PALPITATIONS Chest pain. COMPARISON: Chest Pa And Lat (2 Views) dated 01/23/2016; Chest Pa And Lat (2 Views) dated 07/12/2015; CHEST PA AND LAT 2 VIEW dated 04/19/2007 FINDINGS: Portable technique limits examination quality. Small calcified nodule in the right lung base is noted, likely benign. The lungs are emphysematous bu t clear of acute infiltrate. The heart is mildly enlarged with sternotomy wires present. No displaced fractures. IMPRESSION: No acute intrathoracic process suspected.
--- NOTE | 2018-07-12 08:45 | EKG ---
Test Date: 2018-07-12 Test Time: 01:57:36 Physical Anthropologist: RAJENDRAT MEASUREMENT RESULTS: Intervals: Rate: 57 MD: 186 QRSD: 84 QT: 442 QTc: 430 [place]: P: 62 MD: 186 QRS: 20 T: 58 INTERPRETIVE STATEMENTS: Sinus bradycardia Possible Anterior infarct, age undetermined Abnormal ECG No previous ECG available for comparison Electronically Signed On 07-12-18 08:44:29 CDT by Flakito Gastelum
--- NOTE | 2018-07-12 10:42 | RAD REPORT ---
EXAM DESCRIPTION: Head Brain Wo Cont CLINICAL HISTORY: DIZZINESS COMPARISON: None. TECHNIQUE: CT HEAD WITHOUT IV CONTRAST on 07/12/2018 1:17 AM CDT This exam was performed according to our departmental dose-optimization program, which includes autom ated exposure control, adjustment of the mA and/or kV according to patient size and/or use of iterati ve reconstruction technique. FINDINGS: There is no acute hemorrhage, mass effect or midline shift. Burton-white differentiation is preserved. There is no hydrocephalus. There is no significant volume loss for age. There are mild pat blayne hypodensities within the periventricular and subcortical white matter, consistent with microangio pathic ischemic changes. The calvarium is intact. Orbits and globes are unremarkable. The paranasal sinuses are clear. Mastoid air cells are clear. IMPRESSION: No acute intracranial findings. Electronically signed by: Pacheco Harp MD 07/12/2018 2:07 AM CDT Due to temporary technical issues with the PACS/Fluency reporting system, reports are being signed by the in house radiologist as a courtesy to ensure prompt reporting. The interpreting radiologist is f ully responsible for the content of the report.
--- NOTE | 2018-07-12 10:45 | RAD REPORT ---
EXAM DESCRIPTION: Head angio CLINICAL HISTORY: DIZZINESS COMPARISON: None. TECHNIQUE: CT HEAD ANGIOGRAPHY WITH IV CONTRAST on 07/12/2018 2:08 AM CDT This exam was performed according to our departmental dose-optimization program, which includes autom ated exposure control, adjustment of the mA and/or kV according to patient size and/or use of iterati ve reconstruction technique. MIP reconstructions were generated. Stenoses are calculated by NASCET criteria. FINDINGS: The vertebral basilar system is unremarkable. The bilateral posterior cerebral arteries ar e patent. The anterior and middle cerebral arteries are unremarkable. Distal internal carotid arterie s are normal. Anterior communicating artery is patent. IMPRESSION: Unremarkable intracranial circulation. Electronically signed by: Pacheco Harp MD 07/12/2018 3:36 AM CDT Due to temporary technical issues with the PACS/Fluency reporting system, reports are being signed by the in house radiologist as a courtesy to ensure prompt reporting. The interpreting radiologist is f ully responsible for the content of the report.
--- NOTE | 2018-07-12 10:46 | RAD REPORT ---
EXAM DESCRIPTION: Neck Angio CLINICAL HISTORY: Dizziness COMPARISON: None. TECHNIQUE: CT NECK ANGIOGRAPHY WITH IV CONTRAST on 07/12/2018 2:08 AM CDT This exam was performed according to our departmental dose-optimization program, which includes autom ated exposure control, adjustment of the mA and/or kV according to patient size and/or use of iterati ve reconstruction technique. MIP reconstructions were generated. Stenoses are calculated by NASCET criteria. FINDINGS: Extracranial vertebral arteries are patent. Common carotid arteries and internal carotid a rteries are diffusely patent. IMPRESSION: No evidence of stenosis or vessel occlusion. Electronically signed by: Pacheco Harp MD 07/12/2018 3:39 AM CDT Due to temporary technical issues with the PACS/Fluency reporting system, reports are being signed by the in house radiologist as a courtesy to ensure prompt reporting. The interpreting radiologist is f ully responsible for the content of the report.
== END 2018-07-12 04:51 | disposition home or self-care (01) ==
LOC: ER 00:32
DX: R42 Dizziness and giddiness (principal); E86.0 Dehydration; E78.5 Hyperlipidemia, unspecified; I10 Essential (primary) hypertension; Z79.82 Long term (current) use of aspirin
CPT/HCPCS: 93005; 85025; 80048; 36415; 83735; 81003; 84484; 70450; 70496; 70498; 71045; 96360; 99284; Q9967

== ENCOUNTER 2022-01-11 11:46 | Observation (INO) | payer MEDICARE, BC ==
--- OUTSIDE RECORDS SUMMARY | 2022-01-11 11:50 | XMS REPORT | Continuity of Care Document ---
:1945 Author Organization [facility] t Address [address] [place] [address] Care Team Providers Name Role Phone Alton Ballard Primary Care Physician DOUG ADAM Attending Clinician Unavailable Doug Adam MD Attending Clinician Doctor Unassigned, Tavares Attending Clinician Unavailable Pob, Ad[facility] Lab Main Attending Clinician Unavailable Amie Carter MD Attending Clinician Zion Forman Attending Clinician DOUG ADAM Admitting Clinician Unavailable Doug Adam MD Admitting Clinician Zion Forman Admitting Clinician Payers Payer Name Policy Type Policy Number Effective Date Expiration Date S ource ER/OBS/IP MEDICARE [id number] 2011 PART B ONLY 00:00:00 BC[employer] TRADITIONAL [id number] 2016 00:00:00 Problems Condition Condition Condition Status Onset Resolution Last Treating Co mments Source Name Details Category Date Date Treatment Clinician Date Bradycardi Bradycardi Disease Active Last B aylor a a 9-13 [employer] 00:00: t & Plan: of 00 Holter as Medicin above, e off carvedilo lReport new/worse edith symptoms M16.12 - M16.12 - Diagnosis Active 2015-032016-03-06 Memoria UNILATERAL UNILATERAL 03-24 16:14:00 l PRIMARY PRIMARY 00:01: [place] OSTEOARTHR OSTEOARTHR 00 I I Active 01/23/[address] [facility] Glucose Glucose Disease Active 2015-03 Last Manohar intoleranc intoleranc 03-19 [employer] e e 00:00: t & Plan: of (impaired (impaired 00 HbA1C Medi dee dee glucose glucose ordered e tolerance) tolerance) todayImpr ove dietDieti nestor referralF ollow up with primary MD Dyslipidem Dyslipidem Disease Active 2015-03 Last Lisa vuaghan ia ia 03-19 [employer] 00:00: t & Plan: of 00 Fasting Medicin lipids e ordered todayDiet and exercise could be improved PAIN IN PAIN IN Diagnosis Active 2015-032016-05-08 Memoria LEFT HIP, LEFT HIP, 03-17 09:38:00 l UNILATERAL UNILATERAL 00:00: He rmann PRIMARY PRIMARY 00 OST OST Active 01/16/2016 [facility] I82.409 - I82.409 - Diagnosis Active 2015-10-[address] [facility] ACUTE ACUTE 10-07 12:52:00 l EMBOLISM EMBOLISM 00:01: Arie n AND AND 00 THOMBOS THOMBOS UNS UNS Active 6 [facility] Hip pain Hip pain Disease Active Metho di 09-26 st 00:00: Hospita 00 l Hypertensi Hypertensi Disease Active Scotty vaughan on on 09-02 [employer] 00:00: t & Plan: of 00 Inconsist Medicin ent BP e elevation taken at inconsist ent time of day, exacerbat ed by anxiety.B P within normal limits in office todayInst ructed to report only resting AM and PM BP in one weekExten ded time (25 min) spent reviewing HTN guideline s, treatment goals, benefits of preventat wander diet, exercise, increased hydration , significa nce and indicatio n for CV screening tests, addressin g patient's questions /concerns .Monitor dizziness (? Losartan? ) with increased hydration Goal to simplify medicatio ns, switch to one medicatio n only pending review of BP log Systolic Systolic Disease Active Scotty Pierce r murmur murmur 09-02 [employer] 00:00: t & Plan: of 00 Stable, Medicin benign e Preoperati Preoperati Disease Active Last B [facility] oscar moore 09-02 [facility] clearance clearance 00:00: t & Plan: o f 00 Pending Medicin BP e results, if better controlle d on carvedilo l 6.25 BID which should be continued pre and post operative ly.Follow up visit two months after surgery. Constricti Constricti Disease Active Last B [facility] pericardit pericardit t & Plan: of is is No Medicin hemodynam e ic evidence of constrict ion by echoStabl e Heart Heart Problem Active 2016-02-23 Memor ia murmur murmur 01:27:28 l (finding) (finding) Keith melgar Active Problem 02/23/2016 [facility] ACUTE ACUTE Diagnosis Active 2015-10-08 Mem oria EMBOLISM EMBOLISM 12:52:00 l AND AND Anton [facility] UNSP DEEP UNSP DEEP VN VN Active [facility] PRESENCE PRESENCE Diagnosis Active 2015-10-08 Memoria OF RIGHT OF RIGHT 12:52:00 l ARTIFICIAL ARTIFICIAL He rmann HIP JOINT HIP JOINT Active [facility] ILLNESS, ILLNESS, Diagnosis Active 2016-05-08 Memoria UNSPECIFIE UNSPECIFIE 09:38:00 l D D Active Anton [facility] Hearing Hearing Problem Resolve 2016-02-23 Memoria loss loss d 01:27:28 l (finding) (finding) Keith melgar Resolved Problem 02/23/2016 [facility] Viral Viral Problem Resolve 2001-2016-02-23 2016-02-23 Memoria hepatitis hepatitis d 03-09 01:27:28 01:27:28 l C C 00:00: Anton (disorder) (disorder) 00 Resolved 03/09/2001 Problem 02/23/2016 Treated [facility] Carditis Carditis Problem Resolve 1979-2016-02-23 2016-02-23 Memoria (disorder) (disorder) d 03-09 01:27:28 01:27:28 l Resolved 00:00: Anton 03/09/1979 00 Problem 02/23/2016 [facility] Tuberculos Tuberculo Problem Resolve 1968-0 2016-02-23 2016-02-23 Memoria is sis d 03-09 01:27:28 01:27:28 l (disorder) (disorder) 00:00: He rmann Resolved 00 03/09/1968 Problem 02/23/2016 Treated [facility] Allergies, Adverse Reactions, Alerts Allergy Allergy Status Severity Reaction(s) Onset Inactive Treating Comm ents Source Name Type Date Date Clinician Carrie Hastings Active intoleran Concho veronica ol ty to 03-14 [facility] adverse 00:00: of reaction 00 Medicin s to e drug Losartan Propensi Active intoleren Concho veronica ty to 03-14 [facility] adverse 00:00: of reaction 00 Medicin s to e drug NO KNOWN Drug Active Univers ALLERGIE Class ity of S [facility] Social History Social Habit Start Date Stop Date Quantity Comments Source Exposure to 2021-06-22 2021-07-02 Not sure [facility] SARS-CoV-2 00:00:00 10:45:00 [place] [facility] (event) Branch Tobacco use and 2021-05-09 2021-05-09 Never used Universit y of exposure 00:00:00 00:00:00 [facility] Social History 2016-02-04 2016-02-04 [facility] 15:37:58 15:37:58 Alcohol intake 2015-11-02 2015-11-[address] [facility] 00:00:00 00:00:00 non-drinker of Medical nter alcohol (finding) Alcohol Comment 2015-09-03 2015-09-03 rare glass of [facility] of 00:00:00 00:00:00 wine Medicine Sex Ass[birth year] [facility] 00:00:00 00:00:00 Smoking Status Start Date Stop Date Source Never smoker [facility] Medical Branch Medications Ordered Filled Start Stop Current Ordering Indication Dosage Frequency Signature Comments Components Source Medication Medication Date Date Medication? Clinician (SIG) Name Name neomycin-po Yes PRN, Univer s lymyxin-dex 07-04 Starting ity of amethasone 15:10: on [place] (MAXITROL) 00 07/04/21 at Med ical 3.5 1010, Branch mg/g-10,000 Until unit/g-0.1 Discontinu % ed, ophthalmic Routine, ointment Intra-op gentamicin Yes PRN, Univers injection 07-04 Starting ity of 15:10: on [place] 00 07/04/21 at Medical 1010, Branch Until Discontinu ed, HUNTER, Intra-op DUOVISC Yes PRN, Univers (DUOVISC 07-04 Starting ity of VISCO 15:10: on [place] ELASTIC) 3 00 07/04/21 at Med ical %-4 %(0.5 1010, Branch mL) 1 % Until (0.55 mL) Discontinu intraocular ed, injection Routine, Intra-op dexamethaso Yes PRN, Univer s ne 07-04 Starting ity of (DECADRON 15:10: on [place] PHOSPHATE) 00 07/04/21 at Med ical injection 1010, Branch Until Discontinu ed, Routine, Intra-op neomycin-po 2021- No [facility]-04 Starting ity of amethasone 15:10: 17:49 [place] (MAXITROL) 00 :52 07/04/21 at Med ical 3.5 1010, Branch mg/g-10,000 Until [place] unit/g-0.1 07/04/21 at % 1249, ophthalmic Routine, ointment Intra-op gentamicin 2021- No PRN, Univer s injection 07-04 Starting ity o f 15:10: 17:49 on [place] 00 :52 07/04/21 at Medical 1010, Branch Until [place] 07/04/21 at 1249, HUNTER, Intra-op DUOVISC 2021- No PRN, Univers (DUOVISC 07-04 Starting ity of VISCO 15:10: 17:49 on [place] ELASTIC) 3 00 :52 07/04/21 at Med ical %-4 %(0.5 1010, Branch mL) 1 % Until [place] (0.55 mL) 07/04/21 at intraocular 1249, injection Routine, Intra-op dexamethaso 2021- No PRN, [facility] ne 07-04 Starting ity of (DECADRON 15:10: 17:49 on [place] PHOSPHATE) 00 :52 07/04/21 at Med ical injection 1010, Branch Until [place] 07/04/21 at 1249, Routine, Intra-op ceFAZolin 0 Yes PRN, Univers (ANCEF) 07-04 Starting ity of injection 15:09: on [place] 00 07/04/21 at [facility] 1009, Branch Until Discontinu ed, HUNTER, Intra-op ceFAZolin 0 2021- No PRN, Univers (ANCEF) 07-04 Starting ity of injection 15:09: 17:49 on [place] 00 :52 07/04/21 at [place] [id number], Branch Until [place] 07/04/21 at 1249, HUNTER, Intra-op NaCl 0.9% 0 Yes PRN, Univers (NS) 07-04 Starting ity of injection 15:08: on [place] 00 07/04/21 at [place] [id number], Branch Until Discontinu ed, Routine, Intra-op NaCl 0.9% 0 2021- No PRN, Univers (NS) 07-04 Starting ity of injection 15:08: 17:49 on [place] 00 :52 07/04/21 at [facility] 1008, Branch Until [place] 07/04/21 at 1249, Routine, Intra-op EPINEPHrine 0 Yes PRN, Univer s (PF) 07-04 Starting ity of 1:1,000 (1 15:05: on [place] mg/mL) 00 07/04/21 at [facility] (ADRENALIN 1005, Branch (PF)) Until injection Discontinu ed, Routine, Intra-op balanced 0 Yes PRN, Univers salt soln 07-04 Starting ity of no.2 irrig. 15:05: [place] (BSS) 00 07/04/21 at [facility] ophthalmic 1005, Branch solution Until Discontinu ed, Routine, Intra-op EPINEPHrine 0 2021- No PRN, Unive rs (PF) 07-04 Starting ity of 1:1,000 (1 15:05: 17:49 [place] mg/mL) 00 :52 07/04/21 at [facility] (ADRENALIN 1005, Branch (PF)) Until [place] injection 07/04/21 at 1249, Routine, Intra-op balanced 2021- No PRN, Univers salt soln 07-04 Starting ity o f no.2 irrig. 15:05: 17:49 on [place] (BSS) 00 :52 07/04/21 [facility], Branch solution Until [place] 07/04/21 at 1249, Routine, Intra-op water for Yes PRN, Univers irrigation 07-04 Starting ity o f irrigation 15:02: on [place] solution 00 07/04/21 at [place] [address], Branch Until Discontinu ed, Routine, Intra-op water for 2021- No PRN, Univers irrigation 07-04 Starting ity of irrigation 15:02: 17:49 on [facility] [place] solution 00 :52 07/04/21 at [place] [address], Branch Until [place] 07/04/21 at 1249, Routine, Intra-op eye block Yes PRN, Univers syringe 07-04 Starting ity o f mL 15:01: on [place] 00 07/04/21 at [place] [id number], Branch Until Discontinu ed, Intra-op eye block 2021- No PRN, Univers syringe 11 07-04 Starting ity of mL 15:01: 17:49 on [place] 00 :52 07/04/21 at [place] [address], Branch Until [place] 07/04/21 at 1249, Intra-op tetracaine Yes PRN, Univers (PONTOCAINE 07-04 Starting ity of ) 0.5 % 14:55: on [place] ophthalmic 00 07/04/21 at [facility] ical drops 0955, Branch Until Discontinu ed, Routine, Intra-op tetracaine 2021- No PRN, Univer s (PONTOCAINE 07-04 Starting ity of ) 0.5 % 14:55: 17:49 on [facility] ophthalmic 00 :52 07/04/21 at [facility] ical drops 0955, Branch Until [place] 07/04/21 at 1249, Routine, Intra-op cyclopent 2021- No .5mL 0.5 mL, Univ ers 1%-tropic 07-04 Left Eye, ity of 1%-phenyl 13:00: 13:27 ONCE, [place] 2.5%-ketor 00 :00 dose, On Medic al 0.5% [place] Branch (MYDRIATIC 07/04/21 at #5) 0800, ophthalmic Routine, solution DSU Pre-op syringe 0.5 mL lactated 2021-0 202- No 1000mL at 42 Unive rs ringers IV 07-04-28 mL/hr, ity of infusion 13:00: 13:27 1,000 mL, [place] 1,000 mL 00 :00 IV Medical Infusion, Branch ONCE, 1 dose, On [place] 07/04/21 at 0800, Routine, DSU Pre-op cyclopent 2021-0 2021- No .5mL 0.5 mL, Univ ers 1%-tropic 07-04 Left Eye, ity of 1%-phenyl 13:00: 13:27 ONCE, 1 [place] 2.5%-ketor 00 :00 dose, On Medic al 0.5% [place] Branch (MYDRIATIC 07/04/21 at #5) 0800, ophthalmic Routine, solution DSU Pre-op syringe 0.5 mL lactated 2021-0 2021- No 1000mL at 42 Unive rs ringers IV 07-04- mL/hr, ity of infusion 13:00: 13: 1,000 mL, [place] as 1,000 mL 00 :00 IV Medical Infusion, Branch ONCE, 1 dose, On [place] 07/04/21 at 0800, Routine, DSU Pre-op losartan 25 2021-0 Yes 25mg Take 25 mg Univers mg tablet 4-28 by mouth ity of 10:49: daily. [address] amLODIPine 2021-0 Yes 2.5mg Take 2.5 Un claudio 5 mg tablet 4-28 mg by ity of 10:49: mouth 2 [place] [address] (two) Medical times [place] daily. losartan 25 2021-0 Yes 25mg Take 25 mg Univers mg tablet 4-28 by mouth ity of 10:49: daily. [address] amLODIPine 2-0 Yes 2.5mg Take 2.5 Un claudio 5 mg tablet 4-28 mg by ity of 10:49: mouth 2 [place] [address] (two) Medical times Branch daily. losartan 25 2021-0 Yes 25mg Take 25 mg Univers mg tablet 4-28 by mouth ity of 10:49: daily. [place] [address] Medical Branch amLODIPine 2021-0 Yes 2.5mg Take 2.5 Un claudio 5 mg tablet 4-28 mg by ity of 10:49: mouth 2 [place] [address] (two) Medical times Branch daily. atorvastati 0 Yes 20mg Take 20 mg Univers n 20 mg 4-07 by mouth ity of tablet 00:00: daily. [place] 00 Medical Branch atorvastati 2021-0 Yes 20mg Take 20 mg Univers n 20 mg 4-07 by mouth ity of tablet 00:00: daily. [place] [address] Medical Branch atorvastati 0 Yes 20mg Take 20 mg Univers n 20 mg 4-07 by mouth ity of tablet 00:00: daily. [place] 00 Medical Branch No known 2021-0 No Univers medications 3-03 ity of 12:20: [place] [address] Medical Branch No known 2021-0 No Univers medications 3-03 ity of 12:20: [address] Branch losartan 2019-0 Yes 25mg Take 25 mg [place] veronica (COZAAR) 25 3-16 by mouth Keri ege MG tablet 15:34: daily. of 31 Medicin e venlafaxine 2020- No 37.5mg Take 37.5 Manohar (EFFEXOR) 3-16 03-16 mg by [place] 37.5 MG 15:34: 00:00 mouth 3 of tablet 07 :00 times Medicin daily. e aspirin 325 2018- No 325mg Take 325 [facility] mg tablet 11-19 mg by [place] 16:51: 00:00 mouth of 13 :00 every 6 Medicin hours as e needed for Pain. Reported on 04/11/2016 Naproxen 2018- No Take by [place] r Sodium 11-19 mouth. [place] (ALEVE OR) 16:51: 00:00 of 01 :00 Medicin e paroxetine 2019- No 20mg Take 20 mg Manohar (PAXIL) 20 11-19 by mouth Keri ege MG tablet 16:50: 00:00 daily. of 52 :00 Medicin e venlafaxine Yes 37.5mg Take 37.5 [facility] (EFFEXOR) - mg by College 37.5 MG 16:24: mouth 3 of tablet 24 times Medicin daily. e losartan Yes 25mg Take 25 mg [place] veronica (COZAAR) 25 11-19 by mouth Keri ege MG tablet 16:24: daily. of 24 Medicin e hydrocodone 2019- No 1{tbl} Take 1 Tab [facility] -acetaminop 11-19 by mouth Col lege hen (NORCO) 16:23: 00:00 every 6 of 10-325 MG 40 :00 hours as Medici n per tablet needed for e Pain. Reported on 04/11/2016 gabapentin 2018- No 300mg Take 300 B aylor (NEURONTIN) 11-19 mg by [facility] e 300 MG 16:23: 00:00 mouth of capsule 34 :00 daily. Medicin Reported e on 04/11/2016 Docusate 2019- No Take by [place] r Calcium 11-19 mouth. College (STOOL 16:23: 00:00 Reported of SOFTENER 28 :00 on Medicin OR) 04/11/2016 e diflupredna 2019- No 1[drp] 1 Drop B aylor te 11-19 four times College (DUREZOL) 16:23: 00:00 daily. of 0.05 % 25 :00 Reported Medicin ophthalmic on e emulsion 04/11/2016 celecoxib 2019- No 200mg Take 200 Ba ylor (CELEBREX) 11-19 mg by [place] 200 MG 16:23: 00:00 mouth two of capsule 19 :00 times Medicin daily. e Reported on 04/11/2016 bromfenac 2019- No 1[drp] 1 Drop [place] veronica (BROMDAY) 11-19 daily. College 0.09 % 16:23: 00:00 Reported of ophthalmic 13 :00 on Medicin solution 04/11/2016 e amlodipine Yes Take 1/2 [place] veronica (NORVASC) 5 7-07 tablet by Col lege MG tablet 00:00: mouth of 00 twice a Medicin day e amlodipine Yes Take 1/2 [place] veronica (NORVASC) 5 7-07 tablet by Col lege MG tablet 00:00: mouth of 00 twice a Medicin day e Mupirocin 2015-03 Yes 1 appl, Memor ia 2-13 NASAL, l 19:43: Q12H, in [place] 00 each nostril, 0 Refill(s) Acetaminoph 2015-03 Yes 10/325mg, M emoria en 325 MG / 2-13 PO, Q4H, l Hydrocodone 19:41: PRN as Herm talia Bitartrate 00 needed for 10 MG Oral pain, # 50 Tablet tab, 0 [[place] Refill(s) 10/325] gabapentin 2015-03 Yes 300 mg = 1 M emoria 300 MG Oral 2-13 cap, PO, l Capsule 19:41: Bedtime, Arie n 00 For nerve pain May cause dorwisness , # 30 cap, 0 Refill(s) celecoxib 2015-03 Yes 200 mg = 1 Me moria 200 MG Oral 2-13 cap, PO, l Capsule 19:41: BID, Take Juliet nn [Celebrex] 00 with food Prevent bone spur, # 60 cap, 0 Refill(s) Aspirin 325 2015-03 Yes 325 mg = 1 Memoria MG Enteric 2-13 tab, PO, l Coated 19:41: BID, Take Arie n Tablet 00 with food For blood clot prevention , # 60 tab, 0 Refill(s) bromfenac 2015-03 No 1 drp, Memori a 0.9 MG/ML - Route: l Ophthalmic 15:00: OPTH, Drug H ermann Solution 00 Form: [Bromday] SOLN, Dosing Weight 78.182, kg, BID, Start date: 02/19/16 9:00:00 FOOD OPERATIONS MANAGER, Duration: 30 day, Stop date: 03/19/16 17:00:00 FOOD OPERATIONS MANAGER Paroxetine 2015-03 No Notes: Memor ia 2-13 (Same as: l 15:00: Paxil) Enoxaparin 2015-03 No Notes: Memor ia 2-13 (Same as: l 11:00: Lovenox) Vancomycin 2015-03 No 2001 mg: Me moria 6.67 MG/ML 2-13 infuse l Injectable 09:00: over 2.5 Her [place] Solution 00 hours MEDICATION WASTE Product Size: 1000 mg Product Wasted: ___ mg gabapentin 2015-03 No Notes: Memor ia 2-13 (Same as: l 04:00: Neurontin) Anton 00 acetaminoph 2015-03 No Notes: Max Memoria en 2-13 acetaminop l 03:00: hen 4000 [place] 00 mg/day (4 gm/day). (Same as: Tylenol Extra Strength) celecoxib 2015-03 No Notes: Memori a 2-13 NSAID. l 03:00: Please Anton check indication . Not for seizure. (Same As: CeleBREX) Saline 2015-03 No 10 ml, Memoria Flush 0.9% 04-21 Route: l 03:00: IVP, Drug Form: INJ, Dosing Weight 78.182, kg, Q12H, Start date: 02/18/16 21:00:00 FOOD OPERATIONS MANAGER, Duration: 30 day, Stop date: 03/19/16 9:00:00 FOOD OPERATIONS MANAGER Mupirocin 2015-03 No 1 appl, Memor ia 04-21 Route: l 03:00: NASAL, Anton 00 Q12H, Drug form: OINT, Start date: 02/18/16 21:00:00 FOOD OPERATIONS MANAGER, Duration: 30 day, Stop date: 03/19/16 9:00:00 FOOD OPERATIONS MANAGER ceFAZolin 2015-03 No Notes: Memori a (SCIP) 2-13 Same as: l 02:00: Ancef [place] 00 Docusate 2015-03 No Notes: Memoria 2-12 (Same as: l 23:00: Colace) Anton 00 (Do Not Crush) phenylephri 2015-03 No Route: IV, Memoria ne (ANES) 04-20 Drug form: l 22:49: INJ, ONCE, [place] 00 Stop date: 02/18/16 16:49:00 FOOD OPERATIONS MANAGER Acetaminoph 2015-03 No 1,000 mg, M emoria en 12 Route: l 22:00: IVPB, [place] Q6Hnow, Dosing Weight 78.182, kg, Start date: 02/18/16 16:00:00 FOOD OPERATIONS MANAGER, Duration: 30 day, Stop date: 03/19/16 10:00:00 FOOD OPERATIONS MANAGER BD Normal 2015-03 No Notes: Memori a Saline 2-12 (Same as: l Flush 21:31: BD [place] 00 Posiflush) Sodium 2015-03 No 25 mL, Memoria Chloride 2-12 Route: IV, l 0.9% IV 21:31: Start date: 02/18/16 15:31:00 FOOD OPERATIONS MANAGER, Duration: 30 day, Stop date: 03/19/16 15:30:00 FOOD OPERATIONS MANAGER, PRN Line Flush famotidine 2015-03 No Route: IV, M emoria (ANES) 2-12 Drug form: l 21:18: INJ, ONCE, Stop date: 02/18/16 15:18:00 FOOD OPERATIONS MANAGER metoclopram 2015-03 No Route: IV, Memoria kourtney (ANES) 2-12 Drug form: l 21:18: INJ, ONCE, Stop date: 02/18/16 15:18:00 FOOD OPERATIONS MANAGER ondansetron 2015-03 No Route: IV, Memoria (ANES) 2-12 Drug form: l 21:18: INJ, ONCE, Stop date: 02/18/16 15:18:00 FOOD OPERATIONS MANAGER dexamethaso 2015-03 No Route: IV, Memoria ne (ANES) 2-12 Drug form: l 21:18: INJ, ONCE, Stop date: 02/18/16 15:18:00 FOOD OPERATIONS MANAGER Morphine 2015-03 No Notes: Memoria 2-12 (Same l 21:16: as:MORPhin e Sulfate) Diphenhydra 2015-03 No Notes: Javier sindy mine 2-12 (Same as: l 21:16: Benadryl) Ondansetron 2015-03 No Notes: Javier sindy 2-12 (Same as: l 21:16: Zofran) MEDICATION WASTE Product Size: 4 mg Product Wasted: ___ mg Bisacodyl 2015-03 No Notes: Memori a 2-12 (Same As: l 21:16: Dulcolax, Bisco-Lax) Tramadol 2015-03 No Notes: Not Mem oria 2-12 to exceed l 21:16: 400mg/day. (Same As: Ultram) Saline 2015-03 No 10 ml, Memoria Flush 0.9% 2-12 Route: l 21:16: IVP, Drug [place] 00 Form: INJ, Dosing Weight 78.182, kg, PRN, PRN Line Flush, Start date: 02/18/16 15:16:00 FOOD OPERATIONS MANAGER, Duration: 30 day, Stop date: 03/19/16 15:15:00 FOOD OPERATIONS MANAGER Acetaminoph 2015-03 No Notes: Do M emoria en 325 MG / 2-12 not exceed l Hydrocodone 21:16: 4gm/day of Anton Bitartrate 00 acetaminop 10 MG Oral hen. (Same Tablet as: [place] 325/10) Lactated 2015-03 No 1,000 mL, Javier sindy Ringers 12 Rate: 125 l 1,000 mL 21:16: ml/hr, [place] 00 Infuse over: 8 hr, Route: IV, Dosing Weight 78.182 kg, Total Volume: 1,000, Start date: 02/18/16 15:16:00 FOOD OPERATIONS MANAGER, Duration: 30 day, Stop date: 03/19/16 15:15:00 FOOD OPERATIONS MANAGER phenylephri 2015-03 No Route: IV, Memoria ne (ANES) 2- Drug form: l (ANES) 21:15: INJ, Start Juliet nn 00 date: 02/18/16 15:15:00 FOOD OPERATIONS MANAGER, Stop date: 02/18/16 16:15:00 FOOD OPERATIONS MANAGER morphine 2015-03 No Route: IV, Mem oria Sulfate 2-12 Drug form: l (ANES) 21:12: SOLN, Anton 00 ONCE, Stop date: 02/18/16 15:12:00 FOOD OPERATIONS MANAGER fentaNYL 2015-03 No Route: IV, Mem oria (ANES) 2-12 Drug form: l 21:12: INJ, ONCE, Anton 00 Stop date: 02/18/16 15:12:00 FOOD OPERATIONS MANAGER midazolam 2015-03 No Route: IV, Me moria (ANES) 2-12 Drug form: l 21:12: SOLN, Anton 00 ONCE, Stop date: 02/18/16 15:12:00 FOOD OPERATIONS MANAGER lidocaine 2015-03 No Route: IV, Me moria (ANES) 2-12 Drug form: l 21:12: INJ, ONCE, [place] 00 Stop date: 02/18/16 15:12:00 FOOD OPERATIONS MANAGER ePHEDrine 2015-03 No Route: IV, Me moria (ANES) 2-12 Drug form: l 21:07: INJ, ONCE, [place] Stop date: 02/18/16 15:07:00 FOOD OPERATIONS MANAGER propofol 2015-03 No Route: IV, Mem oria (ANES) 2-12 Drug form: l 21:07: INJ, ONCE, Anton Stop date: 02/18/16 15:07:00 FOOD OPERATIONS MANAGER bupivacaine 2015-03 No Route: IV, Memoria (ANES) 2-12 Drug Form: l 20:52: INJ, ONCE, Anton 00 Stop date: 02/18/16 14:52:00 FOOD OPERATIONS MANAGER morphine 2015-03 No Route: Memoria Sulfate 2-12 INTRATHECA l (ANES) 20:52: L, Drug form: SOLN, ONCE, Stop date: 02/18/16 14:52:00 FOOD OPERATIONS MANAGER acetaminoph 2015-03 No Route: IV, Memoria en (ANES) 2-12 Drug form: l (ANES) 20:37: INJ, Start Juliet date: 02/18/16 14:37:00 FOOD OPERATIONS MANAGER, Stop date: 02/18/16 15:37:00 FOOD OPERATIONS MANAGER tranexamic 2015-03 No Route: IV, M emoria acid (ANES) 2-12 Drug form: l (ANES) 20:34: INJ, Start Juliet date: 02/18/16 14:34:00 FOOD OPERATIONS MANAGER, Stop date: 02/18/16 15:34:00 FOOD OPERATIONS MANAGER propofol 2015-03 No Route: IV, Mem oria (ANES) 2-12 Drug form: l (ANES) 20:20: INJ, Start Ujliet date: 02/18/16 14:20:00 FOOD OPERATIONS MANAGER, Stop date: 02/18/16 15:20:00 FOOD OPERATIONS MANAGER LR 1000 mL 2015-03 No Route: IV, M emoria INJ (ANES) 2-12 Total l 20:11: Volume: [place] 00 1,000, Start date: 02/18/16 14:11:00 FOOD OPERATIONS MANAGER, Stop date: 02/18/16 15:11:00 FOOD OPERATIONS MANAGER vancomycin 2015-03 No Route: IV, M emoria (ANES) 2-12 Drug form: l (ANES) 20:11: INJ, Start Juliet date: 02/18/16 14:11:00 FOOD OPERATIONS MANAGER, Stop date: 02/18/16 15:11:00 FOOD OPERATIONS MANAGER ceFAZolin 2015-03 No Route: IV, Me moria (ANES) 2-12 Drug form: l (ANES) 20:11: INJ, Start Juliet nn 00 date: 02/18/16 14:11:00 FOOD OPERATIONS MANAGER, Stop date: 02/18/16 15:11:00 FOOD OPERATIONS MANAGER ceFAZolin 2015-03 No Notes: Memori a 2-12 Same as: l 06:00: Ancef [place] 00 vancomycin 2015-03 No 2001 mg: Me moria + sodium 2-12 infuse l chloride 06:00: over 2.5 Juliet nn 0.9% 250 mL 00 hours INJ (for IV MEDICATION set) 250 mL WASTE Product Size: 1000 mg Product Wasted: ___ mg Cyklokapron 2015-03 No Notes: Javier sindy + sodium 2-12 (Same As: l chloride 06:00: Cyklokapro Her [place] 0.9% INJ 00 n) 100 mL dexamethaso 2015-03 No Notes: Javier sindy ne 2-12 Concentrat l 06:00: ion: [place] 00 4mg/ml Ofirmev 2015-03 No Notes: Memoria 2-12 Infuse l 06:00: over 15 minutes Do not exceed 4gm/day of acetaminop hen MEDICATION WASTE Product Size: 1000 mg Product Wasted: ___ mg Lyrica 2015-03 No Notes: Memoria 2-12 (Same as: l 06:00: Lyrica) CeleBREX 2015-03 No Notes: Memoria 2-12 NSAID. l 06:00: Please [place]y 00 check indication . Not for seizure. (Same As: CeleBREX) Zofran 2015-03 No Notes: Memoria 2-12 (Same as: l 06:00: Zofran) MEDICATION WASTE Product Size: 4 mg Product Wasted: ___ mg Pepcid 2015-03 No Notes: Memoria 2-12 (Same as: l 06:00: Pepcid) multivitami 2015-03 Yes 1 tab, PO, Memoria n 1-28 Daily, 0 l 15:42: Refill(s) diflupredna 2015-03 Yes 1 drp, Javier sindy te 0.5 04-05 BOTH EYES, l MG/ML 15:41: QID, After Arie n Ophthalmic 00 14 days, Suspension taper dose [Durezol] as directed by physician. , # 5 mL, 0 Refill(s) bromfenac 2015-03 Yes 1 drp, Memori a 0.9 MG/ML 04-05 OPTH, BID, l Ophthalmic 15:41: # 5 ml, 0 He rmann Solution 00 Refill(s) carvedilol 2015-03 Yes 6.25 mg = Me moria 6.25 mg 04-05 1 tab, PO, l oral tablet 15:40: BID, 0 Herm talia 00 Refill(s) PARoxetine 2015-03 Yes 20 mg = 1 Me moria mesylate 20 04-05 tab, PO, l mg oral 15:40: QAM, 0 Anton tablet 00 Refill(s) No known No No known Metho di medications - medication st 09:22: [facility] l Immunizations Ordered Filled Immunization Date Status Comments [facility] e Immunization Name Name SARS-COV-2 COVID-19 2020-12-31 Completed Unive rsity of PFIZER VACCINE 00:00:00 [facility] SARS-COV-2 COVID-19 2020-12-31 Completed Unive rsity of PFIZER VACCINE 00:00:00 [facility] SARS-COV-2 COVID-19 2020-12-31 Completed Unive rsity of PFIZER VACCINE 00:00:00 [facility] SARS-COV-2 COVID-19 2020-05-04 Completed Unive rsity of PFIZER VACCINE 00:00:00 [facility] SARS-COV-2 COVID-19 2020-05-04 Completed Unive rsity of PFIZER VACCINE 00:00:00 [facility] SARS-COV-2 COVID-19 2020-05-04 Completed Unive rsity of PFIZER VACCINE 00:00:00 [facility] SARS-COV-2 COVID-19 2020-04-12 Completed Unive rsity of PFIZER VACCINE 00:00:00 [facility] SARS-COV-2 COVID-19 2020-04-12 Completed Unive rsity of PFIZER VACCINE 00:00:00 [facility] SARS-COV-2 COVID-19 2020-04-12 Completed Unive rsity of PFIZER VACCINE 00:00:00 [facility] Influenza (whole) 2015-12-22 Completed [facility] 00:00:00 Medicine Influenza (whole) 2015-12-22 Completed [facility] 00:00:00 Medicine Vital Signs Vital Name Observation Time Observation Value Comments Source Systolic blood 2021-07-04 15:35:00 156 mm[Hg] Univer sity of pressure [facility] Diastolic blood 2021-07-04 15:35:00 69 mm[Hg] Unive rsity of pressure [facility] Heart rate 2021-07-04 15:35:00 57 /min [facility] Respiratory rate 2021-07-04 15:35:00 12 /min [facility] Oxygen saturation in 2021-07-04 15:35:00 100 /min University of Arterial blood by [facility] Pulse oximetry Branch Body temperature 2021-07-04 15:23:00 36.39 Jackie [facility] Body height 2021-06-28 13:50:00 168.9 cm [facility] Body weight 2021-06-28 13:50:00 65.8 kg [facility] BMI 2021-06-28 13:50:00 23.07 kg/m2 [facility] Heart rate 2021-07-04 15:25:00 52 /min [facility] Respiratory rate 2021-07-04 15:25:00 11 /min [facility] Oxygen saturation in 2021-07-04 15:25:00 100 /min University of Arterial blood by [facility] Pulse oximetry Branch Systolic blood 2021-07-04 15:23:00 137 mm[Hg] Univer sity of pressure [facility] Diastolic blood 2021-07-04 15:23:00 62 mm[Hg] [facility]ive rsity of [facility] Body temperature 2021-07-04 15:23:00 36.39 Jackie [facility] Body height 2021-06-28 13:50:00 168.9 cm [facility] Body weight 2021-06-28 13:50:00 65.8 kg [facility] BMI 2021-06-28 13:50:00 23.07 kg/m2 [facility] Systolic blood 2019-05-23 15:43:00 120 mm[Hg] [facility] pressure Medicine Diastolic blood 2019-05-23 15:43:00 80 mm[Hg] [facility] pressure Medicine Heart rate 2019-05-23 15:43:00 61 /min [facility] Body height 2019-05-23 15:31:00 167.6 cm [facility] Body weight 2019-05-23 15:31:00 79.833 kg [facility] BMI 2019-05-23 15:31:00 28.41 kg/m2 [facility] Systolic blood 2018-11-19 15:44:00 140 mm[Hg] [facility] pressure Medicine Diastolic blood 2018-11-19 15:44:00 72 mm[Hg] [facility] Medicine Heart rate 2018-11-19 15:29:00 54 /min [facility] Body height 2018-11-19 15:29:00 167.6 cm [facility] Body weight 2018-11-19 15:29:00 80.287 kg [facility] BMI 2018-11-19 15:29:00 28.57 kg/m2 [facility] Respitory Rate 2016-02-20 18:00:00 Memori al [facility] Heart Rate 2016-02-20 18:00:00 [facility] Systolic (mm Hg) 2016-02-20 18:00:00 Javier rial [place] Diastolic (mm Hg) 2016-02-20 18:00:00 Mem orial [place] Temperature Oral (F) 2016-02-20 18:00:00 98.1 F [facility] Systolic (mm Hg) 2016-02-20 14:00:00 Javier rial [place] Diastolic (mm Hg) 2016-02-20 14:00:00 Mem orial Anton Temperature Oral (F) 2016-02-20 14:00:00 98.2 F [facility] Heart Rate 2016-02-20 14:00:00 [facility] Respitory Rate 2016-02-20 14:00:00 Frank valencia Anton Systolic (mm Hg) 2016-02-20 10:35:00 Javier roblero Anton Diastolic (mm Hg) 2016-02-20 10:35:00 Mem stanfordal [place] Respitory Rate 2016-02-20 10:35:00 Frank valencia [place] Temperature Oral (F) 2016-02-20 10:35:00 97.6 F [facility] Heart Rate 2016-02-20 10:35:00 [facility] BMI Calculated 2016-02-04 15:11:00 Memori al Anton Height 2016-02-04 15:11:00 167.64 cm [facility] Weight 2016-02-04 15:11:00 [facility] Anton Procedures Procedure Date / Time Performing Source Performed Clinician PHACOEMULSIFICATION OF 2021-07-04 Kia [facility] CATARACT WITH INTRAOCULAR 14:48:00 Fernando oquendo Branch LENS IMPLANT DAY SURGERY - ADC 2021-07-04 [facility] 05:01:00 [facility] ASSIGNMENT OF BENEFITS 2021-06-27 Doctor Unassigned, [facility] 16:50:38 [facility] PHYSICIAN ORDERS 2021-06-27 Doctor Unassigned, [facility] 05:01:00 [facility] PHYSICIAN ORDERS 2021-06-27 Doctor Unassigned, [facility] 05:01:00 [facility] ELECTROCARDIOGRAM COMPLETE 2019-05-23 Amie Carter [facility] 15:51:45 Medicine ELECTROCARDIOGRAM COMPLETE 2018-11-19 Amie Carter [facility] 15:59:58 Medicine Cataract surgery 2015-03-09 Kailee Parkeran n 00:00:00 Hip replacement 2015-03-09 [facility] 00:00:00 Bunionectomy 1987-03-09 [facility] 00:00:00 Open heart [facility] surgery<sup>1</sup> Procedure on nasal septum Frank Hsieh Plan of Care Planned Activity Planned Date Details Comments Source Future Scheduled 2022-01-11 SHINGLES VACCINES (1 [facility] Test 01:20:27 of 2) [code = Hospital SHINGLES VACCINES (1 of 2)] Future Scheduled 2022-01-11 65+ PNEUMOCOCCAL [facility] Test 01:20:27 VACCINE (1 - PCV) Hospital [code = 65+ PNEUMOCOCCAL VACCINE (1 - PCV)] Future Scheduled 2022-01-11 INFLUENZA VACCINE Method ist Test 01:20:27 [code = INFLUENZA Hospital VACCINE] Future Scheduled 2022-01-11 HEPATITIS B VACCINES [facility] Test 01:20:27 (1 of 3 - 3-dose Hospital series) [code = HEPATITIS B VACCINES (1 of 3 - 3-dose series)] Future Scheduled 2022-01-11 COVID-[address] Test 01:20:27 (#1) [code = Hospital COVID-19 VACCINE (#1)] Future Scheduled 2022-01-11 BREAST CANCER [facility] Test 01:20:27 SCREENING [code = Hospital BREAST CANCER SCREENING] Future Scheduled 2022-01-11 COLONOSCOPY [facility] Test 01:20:27 SCREENING [code = Hospital COLONOSCOPY SCREENING] Future Scheduled COLON CANCER [facility] [employer] Test SCREENING: of Medicine COLONOSCOPY [code = COLON CANCER SCREENING: COLONOSCOPY] Future Scheduled MAMMOGRAM ANNUAL [facility] College Test [code = MAMMOGRAM of Medicin e ANNUAL] Future Scheduled MEDICARE AWV [code = [employer] Test MEDICARE AWV] of Medicine Future Scheduled TETANUS SHOT (ADULT) [employer] [facility] [employer] Test [code = TETANUS SHOT of Medi cine (ADULT)] Future Scheduled BMI FOLLOW UP PLAN [employer] Test [code = BMI FOLLOW of Medici ne UP PLAN] Future Scheduled HEPATITIS C [facility] [employer] Test SCREENING [code = of Medicin e HEPATITIS C SCREENING] Future Scheduled FALL SCREEN [code = [employer] FALL SCREEN] of Medicine Future Scheduled OSTEOPOROSIS [facility] [employer] Test SCREENING [code = of Medicin e OSTEOPOROSIS SCREENING] Future Scheduled PNEUMOVAX >=65 [facility] Co llege Test (PPSV23) [code = of Medicine PNEUMOVAX >=65 (PPSV23)] Future Scheduled PREVNAR >= 65 [facility] Col [facility]ge Test (PCV13) [code = of Medicine PREVNAR >= 65 (PCV13)] Future Scheduled FLU VACCINE > 6 [facility] C ollege Test MONTHS [code = FLU of Medici ne VACCINE > 6 MONTHS] Future Scheduled LIPID PANEL [code = Ordered: [employer] Test 57369-5] 05/23/2019 of Medicine Future Scheduled COMPREHENSIVE Ordered: [facility] [employer] Test METABOLIC PANEL 05/23/2019 of Medicine [code = 03121-9] Future Scheduled HEMOGLOBIN A1C [code Ordered: [employer] Test = 4548-4] 05/23/2019 of Medicine Future Scheduled TSH [code = 27431-6] Ordered: [employer] Test 05/23/2019 of Medicine Future Scheduled COLON CANCER [facility] [employer] Test SCREENING: of Medicine COLONOSCOPY [code = COLON CANCER SCREENING: COLONOSCOPY] Future Scheduled TETANUS SHOT (ADULT) [employer] Test [code = TETANUS SHOT of Medi cine (ADULT)] Future Scheduled BMI FOLLOW UP PLAN [facility] Test [code = BMI FOLLOW of Medici ne UP PLAN] Future Scheduled HEPATITIS C [facility] [employer] Test SCREENING [code = of Medicin e HEPATITIS C SCREENING] Future Scheduled FALL SCREEN [code = [employer] [facility] FALL SCREEN] of Medicine Future Scheduled OSTEOPOROSIS [facility] [employer] Test SCREENING [code = of Medicin e OSTEOPOROSIS SCREENING] Future Scheduled PNEUMOVAX >=65 [facility] Test (PPSV23) [code = of Medicine PNEUMOVAX >=65 (PPSV23)] Future Scheduled PREVNAR >= 65 [facility] Col [facility]ge Test (PCV13) [code = of Medicine PREVNAR >= 65 (PCV13)] Future Scheduled MEDICARE AWV [facility] [employer] Test (Initial) [code = of Medicin e MEDICARE AWV (Initial)] Future Scheduled MAMMOGRAM ANNUAL [facility] Test [code = MAMMOGRAM of Medicin e ANNUAL] Future Scheduled FLU VACCINE > 6 [facility] C ollege Test MONTHS [code = FLU of Medici ne VACCINE > 6 MONTHS] Future Scheduled HOLTER MONITOR 24-48 1 Occurrences [employer] Test HRS [code = 07263] starting of Medici ne 11/19/2018 until 11/20/2019 Encounters Start End Encounter Admission Attending Care Care Encounter Source Date/Time Date/Time Type Type Clinicians Facility Department ID 2021-07-04 2021-07-04 Outpatient R KIA ARLUCERO OPH [id number] Univers 07:52:00 10:49:00 DOUG mccarthy of [facility] 2021-07-04 2021-07-04 [facility] Kia ARLUCERO [id number] Univers 07:52:00 10:49:00 Encounter Doug CM [id number] [place] [id number] [facility] 071 Branch 2021-07-04 2021-07-04 Surgery Kia [facility] [id number] Univers 09:49:00 10:25:00 Doug CM [id number] i ty of [place] [id number] [facility] 020 Branch 2021-07-04 2021-07-04 Orders Doctor WHITMORE [id number] Univers 00:00:00 00:00:00 Only Unassigned, CAMELIA [id number] [facility]y [facility] 4.2.7.2.686 Lele as [id number] [address] 2021-06-27 2021-06-27 [employer], Adc Lab Main [facility] 1.2.8 40.114 [id number] Univers 11:45:00 12:00:00 Visit Doug Adam 350.1.1 3.10 ity [place] [id number] Ak dical [facility] 353 [facility] 2021-06-27 2021-06-27 Outpatient R KIA [facility] [id number] Univers 11:45:00 11:45:00 DOUG mccarthy of [facility] 2021-06-27 2021-06-27 Orders Doctor WHITMORE [id number] Univers 00:00:00 00:00:00 Only Unassigned, CAMELIA 350.1.13.10 [facility] 4.2.7.2.686 Lele as [id number] [facility] 009 Branch 2019-05-23 2019-05-23 Office JOSE Carter [id number] [place] [address] 10:18:57 12:01:03 Visit Amie LORD 350.1.13.21 College Y 0.2.7.2.686 of [id number] [facility] 300 e 2018-11-19 2018-11-19 Office JOSE Carter [id number] [place] [address] 09:49:39 11:54:32 Visit Amie Spain AMBULATOR 350.1.13.21 College Y 0.2.7.2.686 [id number] [facility] 300 e 2016-02-18 2016-02-20 Inpatient [facility] [id number] Memoria 11:27:00 21:06:00 r [place] 00 l [facility] 2016-02-18 2016-02-20 Outpatient Dasia [facility] [id number] 05:27:00 15:06:00 [place] 00 Terrence 2015-10-22 2015-10-23 Outpt Diag [facility] [id number] Memoria 18:26:00 04:59:00 Services r Outpatient 01 l [facility] 2015-10-22 2015-10-22 Outpatient Dasia, 2.16.840. 2.16.840.1. [id number] 13:26:00 23:59:00 [place] [id number] 01 Terrence 3.615.30 5.30 2015-10-08 2015-10-09 Outpatient [facility] [id number] Memoria 17:08:00 04:59:00 r [facility] 00 l [facility] 2015-10-08 2015-10-08 Outpatient Dasia [facility] [id number] 12:08:00 23:59:00 [place] 00 Terrence Results Test Description Test Time Test Comments Results Result [facility] e Comments ELECTROCARDIOGRAM 2019-05-23 Result approved COMPLETE 15:51:45 by Amie Carter MD on 05/23/19 ELECTROCARDIOGRAM 2018-11-19 Result approved COMPLETE 15:59:58 by Amie Carter MD on 11/19/18 HEMATOLOGY 2016-02-20 11:32:00 Test Item Value Reference Range Interpretation Comme nts Eosinophils (test code = 2.0 See_Comment [A utomated message] The system Eosinophils) which generated this result transmitted ref erence range: <=4.0. The reference r kevin was not used to interpret this result as normal/abnormal . [facility]X2697-63-13 11:32:00 Test Item Value Reference Range Interpretation Comments Monocytes (test code = Monocytes) 10.8 2.0-12.0 [facility] CenterZzlausfURXRHRBDJX6644-92-98 11:32:00 Test Item Value Reference Range Interpretation Comments Segs (test code = Segs) 61.4 45.0-75.0 [facility] CenterDppygclPFCZNBMELK7531-63-84 11:32:00 Test Item Value Reference Range Interpretation Comments Lymphocytes (test code = Lymphocytes) 24.8 20.0-40.0 [facility] CenterDhzbpnlRIICOVXGCO7866-82-34 11:32:00 Test Item Value Reference Range Interpretation Comments Monocytes # (test code 0.7 See_Comment [Aut omated message] The = Monocytes #) system which generated this result tra nsmitted reference range : <=0.8. The reference r kevin was not used to int erpret this result as normal/abnormal . [place] [id number] 11:32:00 Test Item Value Reference Range Interpretation Comments Lymphocytes # (test code = Lymphocytes 1.6 1.0-5.5 #) [facility] CenterWjwskjgEICKGGPXQH4448-24-63 11:32:00 Test Item Value Reference Range Interpretation Comments Segs-Bands # (test code = Segs-Bands #) 4.0 1.5-8.1 [facility] CenterIuptmasRTHYOKYMKK2298-71-65 11:32:00 Test Item Value Reference Range Interpretation Comments Basophils (test code = 1.0 See_Comment [Aut omated message] The Basophils) system which ge nerated this result tra nsmitted reference range : <=1.0. The reference r kevin was not used to int erpret this result as normal/abnormal . [facility] CenterYrfrjjoIJQMMAJNDI5335-49-16 11:32:00 Test Item Value Reference Range Interpretation Comments Basophils # (test code 0.1 See_Comment [Aut omated message] The = Basophils #) system which generated this result tra nsmitted reference range : <=0.2. The reference r kevin was not used to int erpret this result as normal/abnormal . [facility] CenterOgngpzhRXKPYWQEZL9087-08-73 11:32:00 Test Item Value Reference Range Interpretation Comments Eosinophils # (test code 0.1 See_Comment [A utomated message] The = Eosinophils #) system wh h generated this result tra nsmitted reference range : <=0.5. The reference r kevin was not used to int erpret this result as normal/abnormal . [facility] CenterQxnhkczVCHZKZGIXZ3881-51-47 11:32:00 Test Item Value Reference Range Interpretation Comments Hct (test code = Hct) 25.9 36.0-48.0 [facility] CenterYancpoqJWYPXJJVNH5983-52-61 11:32:00 Test Item Value Reference Range Interpretation Comments MCV (test code = MCV) 84.9 80.0-98.0 [facility] CenterZcqlhktMYLTYMNATZ7255-75-32 11:32:00 Test Item Value Reference Range Interpretation Comments MCH (test code = MCH) 28.2 pg 27.0-31.0 [facility] CenterHmruwxkAPBSLOFTFP8314-98-26 11:32:00 Test Item Value Reference Range Interpretation Comments MCHC (test code = MCHC) 33.2 32.0-36.0 [facility] CenterHvaihhtJHIZAWYEYD3358-07-88 11:32:00 Test Item Value Reference Range Interpretation Comments RDW (test code = RDW) 14.9 11.5-14.5 [facility] CenterIuukvnrFUSOKTKDWX4739-90-80 11:32:00 Test Item Value Reference Range Interpretation Comments Platelet (test code = Platelet) 158 133-450 [facility] CenterTjdisvsUHFQAUWDYS9040-50-87 11:32:00 Test Item Value Reference Range Interpretation Comments MPV (test code = MPV) 9.2 7.4-10.4 [facility] CenterOwwhsdtHMQVKMVKUS1350-69-68 11:32:00 Test Item Value Reference Range Interpretation Comments WBC (test code = WBC) 6.6 3.7-10.4 [facility] CenterZhdvgarVMQMTDZEKW7288-58-30 11:32:00 Test Item Value Reference Range Interpretation Comments RBC (test code = RBC) 3.05 4.20-5.40 [facility] CenterHtdnxpwCWRNIXULGS4546-50-03 11:32:00 Test Item Value Reference Range Interpretation Comments Hgb (test code = Hgb) 8.6 12.0-16.0 [facility]2016-12-13 11:23:00 Test Item Value Reference Range Interpretation Comments AST (test code = AST) 25 See_Comment [Auto mated message] The system which ge nerated this result transmit evan reference range : <=37. The reference range was not used to interpr et this result as gerry l/abnormal. [facility]2016-12-13 11:23:00 Test Item Value Reference Range Interpretation Comments ALT (test code = ALT) 21 See_Comment [Auto mated message] The system which ge nerated this result transmit evan reference range : <=65. The reference range was not used to interpr et this result as gerry l/abnormal. [facility]2016-12-13 11:23:00 Test Item Value Reference Range Interpretation Comments Creatinine Lvl (test code = Creatinine 0.84 0.50-1.40 Lvl) [facility]2016-12-13 11:23:00 Test Item Value Reference Range Interpretation Comments Glucose Lvl (test code = Glucose Lvl) 164 70-99 [facility]2016-12-13 11:23:00 Test Item Value Reference Range Interpretation Comments CO2 (test code = CO2) 23 24-32 [facility]2016-12-13 11:23:00 Test Item Value Reference Range Interpretation Comments BUN (test code = BUN) 14 7-22 [facility]2016-12-13 11:23:00 Test Item Value Reference Range Interpretation Comments Total Protein (test code = Total 5.9 6.4-8.4 Protein) [facility]2016-12-13 11:23:00 Test Item Value Reference Range Interpretation Comments Albumin Lvl (test code = Albumin Lvl) 3.0 3.5-5.0 [facility]2016-12-13 11:23:00 Test Item Value Reference Range Interpretation Comments Alk Phos (test code = Alk Phos) 130 39-136 [facility]2016-12-13 11:23:00 Test Item Value Reference Range Interpretation Comments Bili Total (test code = Bili Total) no gt 0.2-1.3 [facility]2016-12-13 11:23:00 Test Item Value Reference Range Interpretation Comments Calcium Lvl (test code = Calcium Lvl) 8.5 8.5-10.5 [facility]2016-12-13 11:23:00 Test Item Value Reference Range Interpretation Comments Chloride Lvl (test code = Chloride Lvl) 108 95-109 [facility]2016-12-13 11:23:00 Test Item Value Reference Range Interpretation Comments Potassium Lvl (test code = Potassium 4.2 3.5-5.1 Lvl) [facility]2016-12-13 11:23:00 Test Item Value Reference Range Interpretation Comments Sodium Lvl (test code = Sodium Lvl) 142 135-145 [facility]2016-12-13 11:23:00 Test Item Value Reference Range Interpretation Comments A/G Ratio (test code = A/G Ratio) 1.0 0.7-1.6 [facility]2016-12-13 11:23:00 Test Item Value Reference Range Interpretation Comments B/C Ratio (test code = B/C Ratio) 17 6-25 [facility]2016-12-13 11:23:00 Test Item Value Reference Range Interpretation Comments Globulin (test code = Globulin) 2.9 2.7-4.2 [facility]2016-12-13 11:23:00 Test Item Value Reference Range Interpretation Comments AGAP (test code = AGAP) 15.2 10.0-20.0 [facility] Cent[id number] 11:23:00 Test Item Value Reference Range Interpretation Comments INR (test code = INR) 1.05 0.85-1.17 [facility] CenterFunwxajIZCXVWUHVY6994-15-22 11:23:00 Test Item Value Reference Range Interpretation Comments PT (test code = PT) 13.9 s 12.0-14.7 [facility] CenterGrxqbqxVGECZWTGYK1235-06-44 11:23:00 Test Item Value Reference Range Interpretation Comments PTT (test code = PTT) 29.7 s 22.9-35.8 [facility] CenterEuokylxWAPZAZECLJ9370-15-58 11:23:00 Test Item Value Reference Range Interpretation Comments Platelet (test code = Platelet) 195 133-450 [facility] CenterPubmrlmZOGNFDGWCE5470-44-08 11:23:00 Test Item Value Reference Range Interpretation Comments MCH (test code = MCH) 28.1 pg 27.0-31.0 [facility] CenterAnealekTPCLBSOTVM1867-80-47 11:23:00 Test Item Value Reference Range Interpretation Comments MCHC (test code = MCHC) 33.2 32.0-36.0 [facility] CenterXfsbaxmIEXLZQTFJT6922-85-77 11:23:00 Test Item Value Reference Range Interpretation Comments MPV (test code = MPV) 8.9 7.4-10.4 [place] [id number] 11:23:00 Test Item Value Reference Range Interpretation Comments RDW (test code = RDW) 14.9 11.5-14.5 [facility] CenterQcvismkVXVPHIHCHR2952-93-82 11:23:00 Test Item Value Reference Range Interpretation Comments WBC (test code = WBC) 11.1 3.7-10.4 [facility] CenterAqkcgzcLKYCWCZQVV4034-43-32 11:23:00 Test Item Value Reference Range Interpretation Comments MCV (test code = MCV) 84.7 80.0-98.0 [facility] [id number] 11:23:00 Test Item Value Reference Range Interpretation Comments Hct (test code = Hct) 30.5 36.0-48.0 [facility] [id number] 11:23:00 Test Item Value Reference Range Interpretation Comments Hgb (test code = Hgb) 10.1 12.0-16.0 [facility] [id number] 11:23:00 Test Item Value Reference Range Interpretation Comments RBC (test code = RBC) 3.60 4.20-5.40 [facility] [id number] 11:23:00 Test Item Value Reference Range Interpretation Comments Lymphocytes (test code = Lymphocytes) 5.5 20.0-40.0 [facility] [id number] 11:23:00 Test Item Value Reference Range Interpretation Comments Segs-Bands # (test code = Segs-Bands #) 9.6 1.5-8.1 [facility] [id number] 11:23:00 Test Item Value Reference Range Interpretation Comments Basophils (test code = 0.1 See_Comment [Aut omated message] The Basophils) system which ge nerated this result tra nsmitted reference range : <=1.0. The reference r kevin was not used to int erpret this result as normal/abnormal . [facility] [id number] 11:23:00 Test Item Value Reference Range Interpretation Comments Monocytes (test code = Monocytes) 7.2 2.0-12.0 [facility] [id number] 11:23:00 Test Item Value Reference Range Interpretation Comments Monocytes # (test code 0.8 See_Comment [Aut omated message] The = Monocytes #) system which generated this result tra nsmitted reference range : <=0.8. The reference r kevin was not used to int erpret this result as normal/abnormal . [facility] [id number] 11:23:00 Test Item Value Reference Range Interpretation Comments Lymphocytes # (test code = Lymphocytes 0.6 1.0-5.5 #) [facility] [id number] 11:23:00 Test Item Value Reference Range Interpretation Comments Segs (test code = Segs) 87.2 45.0-75.0 [facility] KlebergGlazeon [id number] 11:23:00 Test Item Value Reference Range Interpretation Comments eGFR (test code = eGFR) 71 [facility] [id number] 18:30:00 Test Item Value Reference Range Interpretation Comments Antibody Scrn (test Negative (02/18/16 code = Antibody Scrn) 12:30 PM) [facility] [id number] 18:30:00 Test Item Value Reference Range Interpretation Comments ABO/Rh (test code = ABO/Rh) O POS [facility] KlebergPrescription Corporation of AmericaBACTERIAL - [id number] 16:00:00 Test Item Value Reference Range Interpretation Comments MRSA by PCR (test Negative (02/04/16 10:00 code = MRSA by PCR) AM) [facility] [id number] 16:00:00 Test Item Value Reference Range Interpretation Comments Glucose Lvl (test code = Glucose Lvl) 91 70-99 [id number] 16:00:00 Test Item Value Reference Range Interpretation Comments Sodium Lvl (test code = Sodium Lvl) 144 135-145 [facility] K[id number] 16:00:00 Test Item Value Reference Range Interpretation Comments Potassium Lvl (test code = Potassium 4.1 3.5-5.1 Lvl) [facility] [id number] 16:00:00 Test Item Value Reference Range Interpretation Comments Hct (test code = Hct) 37.8 36.0-48.0 [facility] [id number] 16:00:00 Test Item Value Reference Range Interpretation Comments Hgb (test code = Hgb) 12.3 12.0-16.0 [facility] [id number] 16:00:00 Test Item Value Reference Range Interpretation Comments Hep C Ab (test code = Positive *ABN*(02/04/16 Hep C Ab) 10:00 AM) Kailee Walton
[2022-01-11 12:44] LABS: Urine Blood Negative (Negative); Urine Glucose Negative (Negative); Urine Protein Negative (Negative); Urine Specific Gravity 1.025 (1.005-1.030)
[2022-01-11] MEDS ORDERED: NA CHLORIDE 0.9% 1,000 ML ONE ×2 (12:44→18:30)
[2022-01-11] MEDS ORDERED: ONDANSETRON 4 MG/2 ML VIAL ONE (12:44)
[2022-01-11 13:16] LABS: Urine Mucus Slight /HPF (None Seen); Urine RBC <5 /HPF (None Seen)
[2022-01-11 13:17] LABS: Absolute Lymphocytes (CBC) 0.9 K/uL (0.7-4.9); Hematocrit 37.8 % (36.0-45.0); Lymphocytes % 18.5 % (15.3-44.8); MCV 85.6 fL (80-100); MPV 8.3 fL (7.6-11.3); RBC Red Blood Cell Count 4.42 M/uL (3.86-4.86)
[2022-01-11 13:28] LABS: Albumin 3.5 g/dL (3.4-5.0); Bilirubin Total 0.4 mg/dL (0.2-1.0); Potassium 3.6 mmol/L (3.5-5.1)
--- NOTE | 2022-01-11 14:07 | RAD REPORT ---
EXAM DESCRIPTION: CTAbdomen Pelvis W Contrast - 01/11/2022 1:55 pm CLINICAL HISTORY: abdominal pain COMPARISON: [facility] Whole Body dated 08/23/2018 TECHNIQUE: CT of the abdomen and pelvis was performed with IV contrast. All CT scans are performed using dose optimization technique as appropriate and may include automated exposure control or mA/KV adjustment according to patient size. FINDINGS: Lower chest: Mild circumferential thickening of the distal esophagus. Liver: No acute abnormality or suspicious lesions. Biliary: No biliary ductal dilatation. Stomach: No significant focal abnormality. Duodenum: No significant focal abnormality. Pancreas: No significant abnormality. Spleen: No significant abnormality. Adrenal: No suspicious lesions. Kidney/ureter: No hydronephrosis. No renal calculi. Too small to characterize and/or benign appearing renal lesions are noted. Retroperitoneum: No retroperitoneal adenopathy. Vascular: No aneurysm. Bowel: Moderate stool in colon.. Normal appendix . Peritoneum: Nonspecific pelvic free fluid. Bladder: Grossly unremarkable. Reproductive: No adnexal masses. Bones: No acute fracture. Bilateral hip arthroplasties. Other: n/a IMPRESSION: No acute intra-abdominal or pelvic finding. Free fluid in the pelvis which is abnormal b ut nonspecific normal appendix.
[2022-01-11 15:46] LABS: SARS-CoV-2 Antigen Rapid Res Negative (Negative)
--- NOTE | 2022-01-11 15:53 | ER ---
Nurse's Notes [facility] Name: Mary Romero Age: 76 yrs Sex: Female : 1945 Arrival Date: 01/11/2022 Time: 11:49 Bed 13 Private MD: Alton Herrera V Diagnosis: Palpitations;Bradycardia, unspecified;Abdominal pain, Generalized Presentation: 01/11 12:00 Chief complaint: Patient states: Pt reports abdominal cramping, nausea, chills since ss night. Denies diarrhea, fever. 12:00 Method Of Arrival: Ambulatory ss 12:00 Coronavirus screen: Vaccine status: Patient reports receiving the 2nd dose of the covid ss vaccine. Client denies travel out of the [place] in the last 14 days. Ebola Screen: Patient negative for fever greater than or equal to 101.5 degrees Fahrenheit, and additional compatible Ebola Virus Disease symptoms Patient denies exposure to infectious person. Patient denies travel to an Ebola-affected area in the 21 days before illness onset. Initial Sepsis Screen: Does the patient meet any 2 criteria? No. Patient's initial sepsis screen is negative. Does the patient have a suspected source of infection? No. Patient's initial sepsis screen is negative. Risk Assessment: Do you want to hurt yourself or someone else? Patient reports no desire to harm self or others. Onset of symptoms was January 09, 2022. 12:00 Acuity: LORA 3 ss Triage Assessment: 12:14 General: Appears in no apparent distress. Behavior is calm, cooperative. Pain: ss Complains of pain in abdomen Pain does not radiate. Pain currently is 4 out of 10 on a pain scale. Quality of pain is described as crampy, Pain began 2-3 days ago. GI: Abdomen is flat, Bowel sounds hyperactive in right upper quadrant, left upper quadrant, right lower quadrant and left lower quadrant. Historical: - Allergies: 12:14 No Known Allergies; ss - PMHx: 12:14 Hyperlipidemia; Hypertension; Malignant hypertension-possible; ss - Immunization history:: Adult Immunizations up to date, Client reports receiving the 2nd dose of the Covid vaccine, Last tetanus immunization: up to date Flu vaccine is up to date. - Social history:: Smoking status: Patient denies any tobacco usage or history of. Screenin:17 Abuse screen: Denies threats or abuse. Nutritional screening: No deficits noted. em6 Tuberculosis screening: No symptoms or risk factors identified. 13:03 Fall Risk IV access (20 points). Total Rouse Fall Scale indicates No Risk (0-24 pts). em6 Assessment: 12:15 General: Appears comfortable, Behavior is cooperative. Pain: Complains of pain in right em6 lower quadrant and left lower quadrant Pain does not radiate. Pain currently is 4 out of 10 on a pain scale. Quality of pain is described as crampy, Pain began 2-3 days ago. Is episodic. Neuro: Level of Consciousness is awake, alert, obeys commands, Oriented to person, place, time, situation. Cardiovascular: Heart tones present Patient's skin is warm and dry. Respiratory: Airway is patent Respiratory effort is even, unlabored, Respiratory pattern is regular, symmetrical, Breath sounds are clear bilaterally. GI: Abdomen is flat, non-distended, Bowel sounds present X 4 quads. Abd is soft and non tender X 4 quads. : No signs and/or symptoms were reported regarding the genitourinary system. EENT: No signs and/or symptoms were reported regarding the EENT system. Derm: No signs and/or symptoms reported regarding the dermatologic system. Musculoskeletal: Circulation, motion, and sensation intact. Range of motion: intact in all extremities. 13:15 Reassessment: No changes from previously documented assessment. Patient and/or family em6 updated on plan of care and expected duration. Pain level reassessed. Patient is alert, oriented x 3, equal unlabored respirations, skin warm/dry/pink. 14:15 Reassessment: Patient appears in no apparent distress at this time. Patient and/or db family updated on plan of care and expected duration. Pain level reassessed. patient had a bradycardic episode HR 38 patient states felt like heart was skipping a beat. Denies pain. Patient Alert and Oriented. Notified Dr. Cash and LOLITA Garcia. 15:15 Reassessment: No changes from previously documented assessment. Patient and/or family em6 updated on plan of care and expected duration. Pain level reassessed. Patient is alert, oriented x 3, equal unlabored respirations, skin warm/dry/pink. 16:15 Reassessment: Patient appears in no apparent distress at this time. No changes from em6 previously documented assessment. Patient and/or family updated on plan of care and expected duration. Pain level reassessed. Patient is alert, oriented x 3, equal unlabored respirations, skin warm/dry/pink. 17:15 Reassessment: Patient appears in no apparent distress at this time. No changes from em6 previously documented assessment. Patient and/or family updated on plan of care and expected duration. Pain level reassessed. Patient is alert, oriented x 3, equal unlabored respirations, skin warm/dry/pink. 18:15 Reassessment: Patient appears in no apparent distress at this time. No changes from em6 previously documented assessment. Patient and/or family updated on plan of care and expected duration. Pain level reassessed. Patient is alert, oriented x 3, equal unlabored respirations, skin warm/dry/pink. Vital Signs: 12:00 BP 167 / 79; Pulse 46; Resp 20; Temp 97.9; Pulse Ox 100% ; Weight 61.23 kg; Height 5 ss ft. 6 in. (167.64 cm); Pain 4/10; 13:04 BP 169 / 77; Pulse 46; Resp 16; Pulse Ox 98% on R/A; em6 14:33 BP 199 / 71; Pulse 49; Resp 16; Pulse Ox 100% on R/A; db 14:39 BP 174 / 71; Pulse 50; Resp 19; Pulse Ox 99% on R/A; em6 15:35 BP 190 / 71; Pulse 46; Resp 16; Pulse Ox 97% on R/A; em6 16:15 BP 183 / 66; Pulse 44; Resp 16; Pulse Ox 98% on R/A; em6 16:35 Pulse 36; Resp 15; Pulse Ox 98% ; db 17:45 BP 179 / 80; Pulse 50; Resp 18; Pulse Ox 97% on R/A; em6 18:30 BP 163 / 72; Pulse 47; Resp 17; Pulse Ox 98% on R/A; em6 12:00 Body Mass Index 21.79 (61.23 kg, 167.64 cm) ss 14:39 provider at [facility] due to low pulse. em6 ED Course: 11:49 Patient arrived in ED. as 11:50 Alton Herrera MD is Private Physician. as 12:06 Berna White, RN is Primary Nurse. em6 12:09 Bettie Cash MD is Attending Physician. sp3 12:14 Triage completed. ss 12:14 Arm band placed on right wrist. Patient placed in an exam room, on a stretcher. ss 12:17 Placed in gown. Bed in low position. Call light in reach. Side rails up X2. Pulse ox em6 on. NIBP on. Warm blanket given. 12:55 Inserted saline lock: 20 gauge in right antecubital area, using aseptic technique. em6 Blood collected. 13:03 CBC with Diff Sent. em6 13:03 CMP Sent. em6 13:03 Lipase Sent. em6 13:03 Urine Microscopic Only Sent. em6 13:05 Veronica Garcia FNP-C is [facility]. kb 13:57 CT Abd/Pelvis - IV Contrast Only In Process Unspecified. EDMS 15:23 SARS RAPID Sent. em6 15:52 Art Nunez is Hospitalizing Provider. kb 16:15 LAB Add On Sent. em6 20:32 No provider procedures requiring assistance completed. Patient admitted, IV remains in ke1 place. Administered Medications: 12:55 Drug: NS 0.9% 1000 ml Route: IV; Rate: 1 bolus; Site: right antecubital; em6 14:00 Follow up: Response: No adverse reaction; IV Status: Completed infusion; IV Intake: em6 1000ml 12:55 Drug: Zofran (Ondansetron) 4 mg Route: IVP; Site: right antecubital; em6 13:30 Follow up: Response: No adverse reaction em6 Medication: 20:32 VIS not applicable for this client. ke1 Intake: 14:00 IV: 1000ml; Total: 1000ml. em6 Outcome: 15:52 Decision to Hospitalize by Provider. kb 20:32 Admitted to Med/surg accompanied by tech. ke1 20:32 Condition: good 20:32 Instructed on the need for admit. 20:33 Patient left the ED. ke1 Signatures: Dispatcher [employer] EDMS Veronica Garcia FNP-C FNP-Ckb Martinez, Amelia as Smirch, Shelby, RN RN Bettie Cash MD MD sp3 Gladys Palmer RN RN ke1 Berna White RN RN em6 Parker, Xena, RN RN db Corrections: (The following items were deleted from the chart) 14:40 14:15 Reassessment: Patient appears in no apparent distress at this time. Patient db and/or family updated on plan of care and expected duration. Pain level reassessed. patient had a bradycardic episode HR 38 patient states felt like heart was skipping a beat. Denies pain. Patient Alert and Oriented. db
--- NOTE | 2022-01-11 15:53 | EDPHYS ---
Physician Documentation [facility] Name: Mary Romero Age: 76 yrs Sex: Female : 1945 Arrival Date: 01/11/2022 Time: 11:49 Bed 13 Private MD: Alotn Herrera V ED Physician Bettie Cash HPI: 01/11 16:35 This 76 yrs old Female presents to ER via Ambulatory with complaints of Abdominal kb Problem. 16:35 The patient presents with abdominal pain that is diffuse. Onset: The symptoms/episode kb began/occurred yesterday. The symptoms do not radiate. Associated signs and symptoms: Pertinent positives: nausea. The symptoms are described as intermittent. Modifying factors: The symptoms are alleviated by nothing, the symptoms are aggravated by nothing. Severity of pain: At its worst the pain was mild moderate in the emergency department the pain has improved. The patient has not experienced similar symptoms in the past. The patient has not recently seen a physician. Pt reports abd cramping, nausea and "gurgling" in abd since yesterday. . Historical: - Allergies: 12:14 No Known Allergies; ss - PMHx: 12:14 Hyperlipidemia; Hypertension; Malignant hypertension-possible; ss - Immunization history:: Adult Immunizations up to date, Client reports receiving the 2nd dose of the Covid vaccine, Last tetanus immunization: up to date Flu vaccine is up to date. - Social history:: Smoking status: Patient denies any tobacco usage or history of. ROS: 16:30 Constitutional: Negative for fever, chills, and weight loss. kb 16:30 Abdomen/GI: Positive for nausea, abdominal cramps. 16:30 All other systems are negative. Exam: 16:30 Constitutional: This is a well developed, well nourished patient who is awake, alert, kb and in no acute distress. Head/Face: Normocephalic, atraumatic. ENT: Moist Mucous membranes Cardiovascular: Regular rate and rhythm with a normal S1 and S2. No gallops, murmurs, or rubs. No pulse deficits. Respiratory: Respirations even and unlabored. No increased work of breathing. Talking in full sentences Skin: Warm, dry with normal turgor. Normal color. MS/ Extremity: Pulses equal, no cyanosis. Neurovascular intact. Full, normal range of motion. Neuro: Awake and alert, GCS 15, oriented to person, place, time, and situation. Moves all extremities. Normal gait. Psych: Awake, alert, with orientation to person, place and time. Behavior, mood, and affect are within normal limits. 16:30 Abdomen/GI: Inspection: abdomen appears normal, Bowel sounds: normal, Palpation: soft, in all quadrants, mild abdominal tenderness, in the left upper quadrant and right lower quadrant. 16:56 ECG was reviewed by the Attending Physician. kb Vital Signs: 12:00 BP 167 / 79; Pulse 46; Resp 20; Temp 97.9; Pulse Ox 100% ; Weight 61.23 kg; Height 5 ss ft. 6 in. (167.64 cm); Pain 4/10; 13:04 BP 169 / 77; Pulse 46; Resp 16; Pulse Ox 98% on R/A; em6 14:33 BP 199 / 71; Pulse 49; Resp 16; Pulse Ox 100% on R/A; db 14:39 BP 174 / 71; Pulse 50; Resp 19; Pulse Ox 99% on R/A; em6 15:35 BP 190 / 71; Pulse 46; Resp 16; Pulse Ox 97% on R/A; em6 16:15 BP 183 / 66; Pulse 44; Resp 16; Pulse Ox 98% on R/A; em6 16:35 Pulse 36; Resp 15; Pulse Ox 98% ; db 17:45 BP 179 / 80; Pulse 50; Resp 18; Pulse Ox 97% on R/A; em6 18:30 BP 163 / 72; Pulse 47; Resp 17; Pulse Ox 98% on R/A; em6 12:00 Body Mass Index 21.79 (61.23 kg, 167.64 cm) ss 14:39 provider at [facility] due to low pulse. em6 MDM: 13:05 Patient medically screened. kb 15:10 ED course: Pt has had episodes of palpitations, stating it feels like her heart is kb skipping beats. Rate has been in the 40s with dips into the 30s on at least two occasions. Pt reports normal rate is around 72. Will admit for observation. 15:48 Data reviewed: vital signs, nurses notes. Data interpreted: Pulse oximetry: on room air kb is 99 %. Interpretation: normal. Counseling: I had a detailed discussion with the patient and/or guardian regarding: the historical points, exam findings, and any diagnostic results supporting the discharge/admit diagnosis, lab results, radiology results, the need for further work-up and treatment in the hospital. 15:49 Physician consultation: Art Nunez was contacted at 15:49, regarding admission, kb patient's condition, and will see patient in ED. ED course: Dr Herrera is out to hospitalist until tomorrow. Pt admitted to Dr Nunez. 01/11 12:38 Order name: CBC with Diff; Complete Time: 13:25 sp3 01/11 12:38 Order name: CMP; Complete Time: 14:56 sp3 01/11 12:38 Order name: Lipase; Complete Time: 14:56 sp3 01/11 12:38 Order name: Urine Microscopic Only; Complete Time: 13:25 sp3 01/11 12:44 Order name: Urine Dipstick-Ancillary; Complete Time: 13:05 EDMS 01/11 14:28 Order name: LAB Add On eb 01/11 12:38 Order name: CT Abd/Pelvis - IV Contrast Only; Complete Time: 14:18 sp3 01/11 12:38 Order name: IV Saline Lock; Complete Time: 13:02 sp3 01/11 14:15 Order name: EKG; Complete Time: 14:15 kb 01/11 14:55 Order name: Troponin High Sensitivity; Complete Time: 15:10 EDMS 01/11 15:16 Order name: SARS RAPID; Complete Time: 15:48 kb 01/11 12:38 Order name: Labs collected and sent; Complete Time: 13:02 sp3 01/11 12:38 Order name: Urine Dipstick-Ancillary (obtain specimen); Complete Time: 13:02 sp3 01/11 14:15 Order name: EKG - Nurse/Tech; Complete Time: 14:30 kb EC:56 Rate is 43 beats/min. Rhythm is regular. QRS [place] is Normal. UT interval is normal at kb 188 msec. QRS interval is normal at 88 msec. QT interval is normal at 412 msec. Administered Medications: 12:55 Drug: NS 0.9% 1000 ml Route: IV; Rate: 1 bolus; Site: right antecubital; em6 14:00 Follow up: Response: No adverse reaction; IV Status: Completed infusion; IV Intake: em6 1000ml 12:55 Drug: Zofran (Ondansetron) 4 mg Route: IVP; Site: right antecubital; em6 13:30 Follow up: Response: No adverse reaction em6 Disposition Summary: 01/11/22 15:52 Hospitalization Ordered Hospitalization Status: Observation kb Provider: Art Nunez Location: Telemetry/MedSurg (observation) kb Condition: Stable kb Problem: new kb Symptoms: are unchanged kb Bed/Room Type: Standard kb Room Assignment: 204(01/11/22 18:32) dw Diagnosis - Palpitations kb - Bradycardia, unspecified kb - Abdominal pain, Generalized kb Forms: - Medication Reconciliation Form kb - SBAR form kb Signatures: Dispatcher [employer] EDVeronica Vázquez, NAKUL LYNCH-Rocio Valentine RN RN dw Ely Warner RN RN ss Bettie Cash MD MD sp3 Berna White RN RN em6 Corrections: (The following items were deleted from the chart) 14:54 14:39 Troponin High Sensitivity ordered. EDMS EDMS 18:32 15:52 kb dw
--- NOTE | 2022-01-11 17:45 | P.HP ---
Certification for Inpatient Patient admitted to: Observation With expected LOS: <2 Midnights Practitioner: I am a practitioner with admitting privileges, knowledge of patient current condition, hospital course, and medical plan of care. Services: Services provided to patient in accordance with Admission requirements found in Title 42 Section 412.3 of the Code of Federal Regulations Patient History Date of Service: 01/11/22 Reason for admission: Abdominal pain, palpitation History of Present Illness: 76-year-old woman with a history hypertension, remote history of constrictive pericarditis status post pericardial window presented to the emergency department with a complaint of abdominal pain and nausea of 2 days duration. She denied any fever, she denied any diarrhea or constipation. CT abdomen and pelvis done in the emergency department was unremarkable. Patient noted to be bradycardic on the administrative library assistant. Per report, her heart rate was down to the 30s. Patient reports intermittent palpitation and and a feeling of skipped beats. EKG showing sinus bradycardia, no heart block. Initial troponin is negative. Patient is placed under observation for further evaluation. Allergies No Known Allergies Allergy (Verified 12/26/15 14:50) Home Medications: Flaxseed/Evening Prim/Bilberry [Tears Again Hydrate Softgel] 1 each PO PRN PRN 12/26/15 PARoxetine HCL [Paxil*] 10 mg PO DAILY 12/26/15 carvediloL [Coreg*] 3.125 mg PO BID 12/26/15 - Past Medical/Surgical History -: Hypertension -: Pericardial window for constrictive pericarditis - Family History Father -: Heart disease Mother -: Heart disease - Social History Smoking Status: Never smoker Alcohol use: No CD- Drugs: No Place of Residence: Home Review of Systems Other: Except as documented, all other systems reviewed and negative. Physical Examination - Physical Exam General: Alert, In no apparent distress, Oriented x3 HEENT: PERRLA, Mucous membr. moist/pink Neck: JVD not distended Respiratory: Clear to auscultation bilaterally, Normal air movement Cardiovascular: No edema, Normal S1 S2, Other (Bradycardia) Gastrointestinal: Normal bowel sounds, Soft and benign, Non-distended, No tenderness Musculoskeletal: No swelling, No tenderness Integumentary: No rashes, No cyanosis Neurological: Normal speech, Normal strength at 5/5 x4 extr, Cranial nerves 3-12 intact Lymphatics: No axilla or inguinal lymphadenopathy - Studies Laboratory Data (last 24 hrs) 01/11/22 13:00: Sodium 138, Potassium 3.6, BUN 11, Creatinine 0.68, Glucose 87, Total Bilirubin 0.4, AST 17, ALT 26, Alkaline Phosphatase 148 H, Lipase 162 01/11/22 13:00: WBC 4.80, Hgb 12.7, Hct 37.8, Plt Count 197 Assessment and Plan - Problems (Diagnosis) (1) Sinus bradycardia Current Visit: Yes Status: Acute (2) Hypertension Current Visit: Yes Status: Acute (3) Acute gastroenteritis Current Visit: Yes Status: Acute - Plan Place patient under observation. Trend troponin Telemetry Cardiology consult Monitor and optimize electrolytes. Supportive measures for acute gastroenteritis. Diet as tolerated. Obtain echocardiogram. Continue home antihypertensives - Advance Directives Does patient have a Living Will: No Does patient have a Durable POA for Healthcare: No
[2022-01-11] MEDS ORDERED: ONDANSETRON 4 MG/2 ML VIAL IV PRN (18:20)
[2022-01-11] MEDS: NA CHLORIDE 0.9% 1,000 ML IV SCH (18:20)
[2022-01-11] MEDS ORDERED: BISACODYL E.C. 5 MG TAB PO ONE (20:00)
[2022-01-11 21:20] VITALS: BMI 21.4
[2022-01-11] MEDS ORDERED: POTASSIUM CL SA 10 MEQ TAB PO ONE (22:00)
[2022-01-11 23:30] LABS: Specific Gravity 1.012 (1.005-1.030); Urine Bilirubin NEGATIVE (Negative); Urine Blood Negative (Negative); Urine Clarity Clear (Clear); Urine Color Colorless (Yellow); Urine Glucose NEGATIVE (Negative); Urine Protein NEGATIVE (Negative); Urine Urobilinogen Normal (Normal)
[2022-01-11] MEDS ORDERED: MORPHINE 2 MG/ML SYR IV PRN (23:40)
[2022-01-11] MEDS ORDERED: HYDRALAZINE HCL 20 MG/ML VIAL IV PRN (23:40)
[2022-01-12] MEDS: NA CHLORIDE 0.9% 1,000 ML IV SCH ×3 (04:40→23:58)
[2022-01-12 06:17] LABS: Absolute Lymphocytes (CBC) 0.5 K/uL (0.7-4.9); Hematocrit 37.8 % (36.0-45.0); MCV 85.8 fL (80-100); MPV 8.8 fL (7.6-11.3); RBC Red Blood Cell Count 4.41 M/uL (3.86-4.86)
[2022-01-12 06:46] LABS: Magnesium 2.2 mg/dL (1.8-2.4); Phosphorus 2.7 mg/dL (2.5-4.9); Potassium 3.8 mmol/L (3.5-5.1); Thyroid Stimulating Hormone 1.34 uIU/mL (0.360-3.740)
[2022-01-12] MEDS ORDERED: POTASSIUM CL SA 10 MEQ TAB PO ONE (09:00)
[2022-01-12] MEDS: ENOXAPARIN 40 MG/0.4 ML SQ SCH (09:02)
--- NOTE | 2022-01-12 15:56 | P.PN ---
Subjective Date of Service: 01/12/22 Chief Complaint: Abdominal pain, palpitation Patient has no new complain. She denies any palpitations or chest pain. Heart rate has been ranging in the 50s since admission. Physical Examination - Vital Signs Temperature: 99.3 F Blood Pressure: 151/73 Pulse: 54 Respirations: 16 Pulse Ox (%): 96 Assessment And Plan - Current Problems (Diagnosis) (1) Sinus bradycardia Current Visit: Yes Status: Acute (2) Hypertension Current Visit: Yes Status: Acute (3) Acute gastroenteritis Current Visit: Yes Status: Acute - Plan Physical Exam General: Alert, In no apparent distress, Oriented x3 Neck: JVD not distended Respiratory: Clear to auscultation bilaterally, Normal air movement Cardiovascular: No edema, Normal S1 S2, bradycardia. Gastrointestinal: Normal bowel sounds, Soft and benign, Non-distended, No tenderness Integumentary: No rashes, No cyanosis Neurological: No focal motor deficit Plan: Patient seen by cardiology Dr. Acuna. Echocardiogram ordered for tomorrow. Continue shuttlecock feather trimmer and optimize electrolytes. Assess heart rate response to exercise. Diet as tolerated. Continue home antihypertensives. Dr. Acuna recommend discharge and follow-up in the office for event monitor after echocardiogram tomorrow.
--- NOTE | 2022-01-12 19:05 | CON ---
Date of Consultation: 01/12/2022 The patient admitted on 01/[address]unez and Dr. Herrera. Reason For Consultation: Bradycardia. History Of Present Illness: Ms. Romero is 76 years old. Has a history of hypertension, dyslipidemi a. Has had a history of constrictive pericarditis, status post surgery in the 70s by Dr. Perea. Mei s not had any problems since. Comes in with abdominal pain, was found to be slightly bradycardic in the 50s. She said she normally runs in the 70s. Denied any syncope or dizziness. No nausea or vomi ting or diaphoresis. Denied any PND, orthopnea, pedal edema, palpitation, or chest pain. Past Medical History: Includes hypertension, dyslipidemia, and constrictive pericarditis. Allergies: NONE. Review of Systems: Negative. Social History: Negative. Family History: Negative. Medications: At home include Lipitor. Physical Examination: Vital Signs: Her heart rate today was 57, normal blood pressure. General: No acute distress. HEENT: Negative. Neck: Supple. No bruit. Chest: Clear. Cardiac: Reveals a regular rhythm and rate. No murmurs, gallops, or rubs. Abdomen: Benign. Extremities: Reveal no clubbing, cyanosis, or edema. Diagnostic Data: All within normal limit except for her heart rate in the 50s. Impression And Plan: Bradycardia, may be a vagal reaction because of her abdominal pain. Echocardio gram is pending. She is fairly asymptomatic rhythm as far as I am concerned. She is on Lipitor, hyd ralazine, and Lovenox right now. She is not on any medication that would make her bradycardic. I wi ll check on her thyroid level. Obtain a 2D echocardiogram. Do an outpatient event monitor, Gilda and I will see her after that. DEANDRE/LOY Voice ID: [id number] Report ID: [id number]
[2022-01-12] MEDS ORDERED: ATORVASTATIN 20 MG TAB PO SCH (21:00)
--- NOTE | 2022-01-13 00:38 | PN ---
Subjective: Patient is doing lot better. Denies chest pain, nausea, vomiting. She was admitted to the hospital because of the bradycardia. When she came to hospital for gastroenteritis, she really had no symptoms from this bradycardia noted in the emergency room. She is not on any medications like beta-jun or calcium channel blockers at this point. Objective: Vital Signs: Blood pressure is 136/65, pulse is 57, temperature 98.8. HEENT: No JVD. No carotid bruits. Chest: Clear. Heart: Regular. Abdomen: No guarding, no rebound, no rigidity. Assessment And Plan: Asymptomatic bradycardia. Currently, she does not use pacemaker, but she will possibly need in future. She wants to explore her cardiac doctors in [place] for this and she will be discharged tomorrow in stable condition. GERALDO/LOY Voice ID: [id number] Report ID: [id number] YVONNE
[2022-01-13 04:47] VITALS: O2SAT 99
[2022-01-13] MEDS ORDERED: DIPHENHYDRAMINE 25 MG TAB/CAP PO ONE (07:51)
[2022-01-13] MEDS ORDERED: dexAMETHasone 4 MG/ML VIAL IV ONE (07:56)
[2022-01-13] MEDS: ENOXAPARIN 40 MG/0.4 ML SQ SCH (08:04)
[2022-01-13] MEDS: NA CHLORIDE 0.9% 1,000 ML IV SCH (08:06)
[2022-01-13 12:04] VITALS: BP 151/63; TEMP 97.9
--- NOTE | 2022-01-13 12:14 | EKG ---
Test Date: 2022-01-11 Test Time: 22:40:08 Solution Manager: SUKI MEASUREMENT RESULTS: Intervals: Rate: 49 AK: 178 QRSD: 78 QT: 444 QTc: 401 [place]: P: 67 AK: 178 QRS: -6 T: 61 INTERPRETIVE STATEMENTS: Marked sinus bradycardia Abnormal ECG Compared to ECG 01/11/2022 14:32:19 Sinus arrhythmia no longer present Electronically Signed On 01-13-22 12:12:22 DIAGNOSTIC ASSISTANT by Kareem Guevara
--- NOTE | 2022-01-13 12:15 | EKG ---
Test Date: 2022-01-11 Test Time: 14:32:19 Retort Furnace Helper: DAYAN MEASUREMENT RESULTS: Intervals: Rate: 43 NC: 188 QRSD: 88 QT: 488 QTc: 412 [place]: P: 73 NC: 188 QRS: 20 T: 61 INTERPRETIVE STATEMENTS: Marked sinus bradycardia with sinus arrhythmia Abnormal ECG Compared to ECG 07/12/2018 01:57:36 Myocardial infarct finding no longer present Electronically Signed On 01-13-22 12:12:37 LICENSING DIRECTOR by Kareem Guevara
--- NOTE | 2022-01-13 13:16 | P.DS ---
Admission Date: 01/11/22 Discharge Date: 01/13/22 Disposition: ROUTINE DISCHARGE Discharge Condition: FAIR Reason for Admission: Abdominal pain, palpitation Brief History of Present Illness: KARLEE COMES WITH DIARRHEA. SHE WAS FOUND TO HAVE BRADYCARDIA. SHE IS WORRIED ABOUT LOW HR BUT SHE HAS NO SS. SHE WILL FU WITH DR. ACUNA. FOR FURTHER NEED. Vital Signs/Physical Exam: Temp Pulse Resp BP Pulse Ox 97.9 F 58 17 151/63 H 94 01/13/22 12:00 01/13/22 12:00 01/13/22 12:00 01/13/22 12:00 01/13/22 12:00 General: Alert, In no apparent distress HEENT: Atraumatic, PERRLA, EOMI Neck: Supple, JVD not distended Respiratory: Clear to auscultation bilaterally, Normal air movement Cardiovascular: Regular rate/rhythm, Normal S1 S2 Gastrointestinal: Normal bowel sounds, No tenderness Musculoskeletal: No tenderness Integumentary: No rashes Neurological: Normal speech, Normal tone, Normal affect Lymphatics: No axilla or inguinal lymphadenopathy Laboratory Data at Discharge: WBC 8.50 K/uL (4.3-10.9) 01/12/22 06:00 Hgb 12.8 g/dL (12.0-15.0) 01/12/22 06:00 Hct 37.8 % (36.0-45.0) 01/12/22 06:00 Plt Count 208 K/uL (152-406) 01/12/22 06:00 Sodium 140 mmol/L (136-145) 01/13/22 03:18 Potassium 4.0 mmol/L (3.5-5.1) 01/13/22 03:18 BUN 12 mg/dL (7-18) 01/13/22 03:18 Creatinine 0.64 mg/dL (0.55-1.3) 01/13/22 03:18 Glucose 91 mg/dL (74-106) 01/13/22 03:18 Phosphorus 2.7 mg/dL (2.5-4.9) 01/12/22 06:00 Magnesium 2.2 mg/dL (1.8-2.4) 01/12/22 06:00 Total Bilirubin 0.4 mg/dL (0.2-1.0) 01/11/22 13:00 AST 17 U/L (15-37) 01/11/22 13:00 ALT 26 U/L (12-78) 01/11/22 13:00 Alkaline Phosphatase 148 U/L (45-117) H 01/11/22 13:00 Lipase 162 U/L (73-393) 01/11/22 13:00 Home Medications: Atorvastatin Calcium 20 mg PO BEDTIME 01/11/22 Followup: Tavon Acuna MD [ACTIVE - CAN ADMIT] - Alton Herrera MD [Primary Care Provider] -
--- NOTE | 2022-01-13 14:00 | PN ---
Date of Progress Note: 01/13/2022 Ms. Romero was consulted on because of bradycardia, her heart rate remained in the 50s, asymptomatic . She is on Lipitor, Lovenox, and hydralazine. Outpatient event monitor and Lexiscan have been plan misha. Echocardiogram is pending for today. If her echo is normal, she can go home and I will see her as an outpatient in the near future, no change in medical therapy. I doubt that her heart rate is c ausing any symptoms at this point. DEANDRE/LOY Voice ID: [id number] Report ID: [id number]
--- NOTE | 2022-01-13 14:33 | ECHO ---
HEIGHT: 5 ft 6.5 in WEIGHT: 135 lb 0 oz DATE OF STUDY: 01/13/[address]: Art Nunez MD 2-DIMENSIONAL: YES M.MODE: YES DOPPLER: YES COLOR FLOW: YES TDS: NO PORTABLE: YES DEFINITY: NO BUBBLE STUDY: NO DIAGNOSIS: BRADYCARDIA CARDIAC HISTORY: CATHERIZATION: SURGERY: YES PROSTHETIC VALVE: PACEMAKER: MEASUREMENTS (cm) DIASTOLIC (NORMALS) SYSTOLIC (NORMALS) IVSd 1.1 (0.6-1.2) LA Diam 3.3 (1.9-4.0) LVEF 60-65% LVIDd 3.9 (3.5-5.7) LVIDs 2.3 (2.0-3.5) %FS 42% LVPWd 1.1 (0.6-1.2) Ao Diam 2.6 (2.0-3.7) 2 DIMENSIONAL ASSESSMENT: RIGHT ATRIUM: NORMAL LEFT ATRIUM: NORMAL RIGHT VENTRICLE: NORMAL LEFT VENTRICLE: NORMAL TRICUSPID VALVE: MITRAL VALVE: PULMONIC VALVE: NORMAL AORTIC VALVE: NORMAL PERICARDIAL EFFUSION: NONE AORTIC ROOT: NORMAL LEFT VENTRICULAR WALL MOTION: NORMAL DOPPLER/COLOR FLOW: MILD TRICUSPID AND MITRAL REURGITATION. COMMENTS: NORMAL LEFT VENTRICULAR EJECTION FRACTION 60-65%. NORMAL WALL MOTION. MILD TRICUSPID AND MITRAL REGURGITATION. TECHNOLOGIST: Chely CAZARES
== END 2022-01-13 15:19 | disposition home or self-care (01) ==
LOC: ER 11:46 → ERHOLD 17:22 → 2ND 18:46
PROVIDERS: ADMIT Internal Medicine; ATTEND Internal Medicine
DX: R00.1 Bradycardia, unspecified (principal); I10 Essential (primary) hypertension; K52.9 Noninfective gastroenteritis and colitis, unspecified; E78.5 Hyperlipidemia, unspecified; I31.9 Disease of pericardium, unspecified; Z20.822 Contact with and (suspected) exposure to COVID-19; R19.7 Diarrhea, unspecified; R10.9 Unspecified abdominal pain
CPT/HCPCS: 96361; 93005 ×2; 93306; 85025 ×2; 80048 ×2; 36415 ×2; 83735; 84100; 84443; 84484; 84439; 83690; 80053; 74177; 96374; 99285; 87811; Q9967; J0360; J1100; J1650 ×2; J7030 ×6; J2405; G0378 ×4; 81003; 81015